=== PATIENT | female | born 1975 | race Caucasian/White ===

== ENCOUNTER 2019-06-12 21:00 | Emergency (ER) | payer OTHER ==
[2019-06-12 21:13] VITALS: RESP 18; TEMP 97.8
[2019-06-12] MEDS ORDERED: HYDROcodone/APAP 5-325MG 1 EACH TAB PO STA (21:21)
[2019-06-12] MEDS ORDERED: KETOROLAC 30 MG/ML 1 ML VIAL IM STA (21:21)
--- NOTE | 2019-06-12 21:57 | XR ---
EXAMINATION TYPE: XR shoulder complete 3 views RT, XR hand complete 3 views RT, XR elbow complete 3 v iews RT DATE OF EXAM: 06/12/2019 COMPARISON: NONE HISTORY: 43-year-old female with pain after fall FINDINGS: Right shoulder: Mild joint space narrowing at the AC joint. Mild bony irregularity and sclerosis of the greater tuber osity. Subacromial space is preserved. No acute fracture, subluxation, or dislocation. Right elbow: No elbow joint effusion. No acute fracture, subluxation, dislocation. Right hand: Mild degenerative spurring at the first CMC joint. No acute fracture, subluxation, or dislocation. IMPRESSION: 1. Right shoulder: Mild bony changes of the greater tuberosity suggests underlying chronic rotator cu ff tendinopathy. If concern for rotator cuff tear, MRI can be performed. 2. Right elbow and right hand: No acute osseous abnormality seen.
--- NOTE | 2019-06-12 22:28 | ED ---
Upper Extremity HPI - General Chief Complaint: Extremity Injury, Upper Stated Complaint: Fall Time Seen by Provider: 06/12/19 21:16 Source: patient Mode of arrival: ambulatory Limitations: no limitations - History of Present Illness Initial Comments: 43-year-old female patient presents to the emergency department today for evaluation of right arm pain after a trip and fall accident. Patient states she was walking backwards when she tripped over a box and fell landing on the right arm. Patient states she did hit her head but denies loss of consciousness. States she is having pain to the right shoulder, right elbow, and right hand. She denies any numbness or tingling to the arm. She denies any neck or back pain. Denies any other injuries. Patient denies any headache, chest pain, shortness of breath, dizziness, weakness, abdominal pain, nausea, vomiting, or difficulties with bowel movements or urination. - Related Data Previous Rx's Medication Instructions Recorded Hydrocodone/Acetaminophen 1 each PO Q4HR PRN #20 tablet 12/14/13 [Hydrocodone/Acetaminophen 5-325] Ibuprofen [Motrin] 600 mg PO Q8HR PRN #30 tab 06/12/19 Allergies Allergy/AdvReac Type Severity Reaction Status Date / Time No Known Allergies Allergy Verified 12/14/13 18:31 Review of Systems ROS Statement: Those systems with pertinent positive or pertinent negative responses have been documented in the HPI. ROS Other: All systems not noted in ROS Statement are negative. Past Medical History Past Medical History: No Reported History History of Any Multi-Drug Resistant Organisms: None Reported Past Surgical History: Section Additional Past Surgical History / Comment(s): d & c Past Psychological History: No Psychological Hx Reported Smoking Status: Never smoker Past Alcohol Use History: Rare Past Drug Use History: None Reported General Exam Limitations: no limitations General appearance: alert, in no apparent distress, other (This is a well- developed, well-nourished adult female patient in no acute distress. Vital signs upon presentation are temperature 97.8F, pulse 84, respirations 18, blood pressure 127/83, pulse ox 93% on room air.) Eye exam: Present: normal appearance, PERRL, EOMI. Absent: scleral icterus, conjunctival injection, periorbital swelling ENT exam: Present: normal exam, normal oropharynx, mucous membranes moist Respiratory exam: Present: normal lung sounds bilaterally. Absent: respiratory distress, wheezes, rales, rhonchi, stridor Cardiovascular Exam: Present: regular rate, normal rhythm, normal heart sounds. Absent: systolic murmur, diastolic murmur, rubs, gallop, clicks GI/Abdominal exam: Present: soft, normal bowel sounds. Absent: distended, tenderness, guarding, rebound, rigid Extremities exam: Present: normal inspection, full ROM, tenderness (Tenderness over the Right shoulder, right elbow, right hand.), normal capillary refill, other (Skin to the right arm is pink, warm, dry. Cap refills less than 3 seconds. Radial pulses 2+ and equal bilaterally.). Absent: pedal edema, joint swelling, calf tenderness Neurological exam: Present: alert, oriented X3, CN II-XII intact Psychiatric exam: Present: normal affect, normal mood Skin exam: Present: warm, dry, intact, normal color. Absent: rash Course Vital Signs 06/12/19 06/12/19 21:09 22:54 Temperature 97.8 F Pulse Rate 84 73 Respiratory 18 18 Rate Blood Pressure 127/83 132/83 O2 Sat by Pulse 93 L 97 Oximetry Medical Decision Making - Medical Decision Making 43-year-old female patient percents into the emergency department today for evaluation of right arm pain after trip and fall accident. Physical examination did reveal tenderness over the right shoulder, right elbow, and right hand. Neurovascular status is intact. X-rays of the right shoulder, elbow, hand were obtained and showed no acute abnormalities. Given patient's symptoms and physical exam findings are is concern for rotator cuff injury. She is placed in a sling. She is educated regarding range of motion exercises throughout the day. She is instructed to follow-up with the content management specialist for further evaluation. She is instructed to follow-up with her primary care physician for recheck in 1-2 days. Return parameters discussed in detail. She verbalizes understanding and agrees with this plan. - Radiology Data Radiology results: report reviewed, image reviewed X-rays of the right shoulder, right hand, and right elbow are obtained. Report was reviewed in its entirety. Impression by Dr. Magaña shows right shoulder mild bony changes of the greater tuberosity suggesting underlying chronic rotator cuff tendinopathy. Of concern for rotator cuff tear, MRI can be performed. Right elbow and right hand showed no acute osseous abnormality. Disposition Clinical Impression: Right shoulder injury Disposition: HOME SELF-CARE Condition: Good Instructions (If sedation given, give patient instructions): Rotator Cuff Injury (ED) Additional Instructions: Take arm out of the sling and perform gentle range of motion exercises 4 times daily. Take medications as directed for pain control. Apply ice to the arm 20 minutes at a time at least 4 times daily. Follow-up with the content management specialist for further evaluation as soon as possible. Follow up with her primary care physician for recheck in 1-2 days. Return to the emergency department immediately for any new, worsening, or concerning symptoms. Prescriptions: Ibuprofen [Motrin] 600 mg PO Q8HR PRN #30 tab PRN Reason: Pain Is patient prescribed a controlled substance at d/c from ED?: No Referrals: Brandy Washington MD [Primary Care Provider] - 1-2 days Richard Rodriguez MD [STAFF PHYSICIAN] - 1-2 days Time of Disposition: 22:28
[2019-06-12 22:56] VITALS: BP 132/83; PULSE 73
== END 2019-06-12 22:54 | disposition home or self-care (01) ==
LOC: EC 21:00
DX: S49.91XA Unspecified injury of right shoulder and upper arm, initial encounter (principal); W01.0XXA Fall on same level from slipping, tripping and stumbling without subsequent striking against object, initial encounter; Y93.01 Activity, walking, marching and hiking; Y92.009 Unspecified place in unspecified non-institutional (private) residence as the place of occurrence of the external cause
CPT/HCPCS: 73030; 73080; 73130; 96372; 99283; J1885

== ENCOUNTER 2021-07-09 13:07 | Emergency (ER) | payer OTHER ==
--- NOTE | 2021-07-09 15:31 | ED ---
General Adult HPI - General Chief complaint: Recheck/Abnormal Lab/Rx Stated complaint: Covid+/BAM Time Seen by Provider: 07/09/21 15:30 Source: patient, RN notes reviewed, old records reviewed Mode of arrival: ambulatory Limitations: no limitations - History of Present Illness Initial comments: Well-appearing 45-year-old female presents to the emergency room with complaints of body aches, fevers, cough and nausea with loss of appetite since July 03. She tested positive for coronavirus and 06 of July. She states that her entire family is positive. She states that she is dehydrated and cannot tolerate body aches anymore. She needs something to help with the nausea. She denies any other medical history no medicines on a daily basis. She has not been vaccinated -: days(s) (6) Location: head, chest Quality: aching Associated Symptoms: cough, loss of appetite, nausea/vomiting, shortness of breath - Related Data Previous Rx's Medication Instructions Recorded Hydrocodone/Acetaminophen 1 each PO Q4HR PRN #20 tablet 12/14/13 [Hydrocodone/Acetaminophen 5-325] Ibuprofen [Motrin] 600 mg PO Q8HR PRN #30 tab 06/12/19 Allergies Allergy/AdvReac Type Severity Reaction Status Date / Time No Known Allergies Allergy Verified 07/09/21 14:07 Review of Systems ROS Statement: Those systems with pertinent positive or pertinent negative responses have been documented in the HPI. ROS Other: All systems not noted in ROS Statement are negative. Past Medical History Past Medical History: No Reported History History of Any Multi-Drug Resistant Organisms: None Reported Past Surgical History: Section Additional Past Surgical History / Comment(s): d & c Past Psychological History: No Psychological Hx Reported Smoking Status: Never smoker Past Alcohol Use History: Rare Past Drug Use History: None Reported General Exam Limitations: no limitations General appearance: alert, in no apparent distress Head exam: Present: atraumatic, normocephalic, normal inspection Eye exam: Present: normal appearance, EOMI ENT exam: Present: normal exam, normal oropharynx, mucous membranes moist Neck exam: Present: normal inspection, full ROM. Absent: tenderness, meningismus, lymphadenopathy, thyromegaly Respiratory exam: Present: normal lung sounds bilaterally. Absent: respiratory distress, wheezes, rales, rhonchi, stridor, chest wall tenderness, accessory muscle use, decreased breath sounds Cardiovascular Exam: Present: regular rate, normal rhythm, normal heart sounds. Absent: systolic murmur, diastolic murmur, rubs, gallop, clicks GI/Abdominal exam: Present: soft, normal bowel sounds. Absent: distended, tenderness, guarding, rebound, rigid Neurological exam: Present: alert, oriented X3 Psychiatric exam: Present: normal affect, normal mood Skin exam: Present: warm, dry, intact, normal color. Absent: rash, cyanosis, diaphoretic Course Vital Signs 07/09/21 07/09/21 14:07 18:28 Temperature 97.9 F 98.2 F Pulse Rate 85 78 Respiratory 18 16 Rate Blood Pressure 117/76 141/79 O2 Sat by Pulse 100 97 Oximetry Medical Decision Making - Medical Decision Making Well-appearing 45-year-old female presents to the emergency room with complaints of body aches, fevers, cough and nausea with loss of appetite since July 03. She tested positive for coronavirus and 06 of July. She has not been vaccinated. She was given monoclonal antibodies infusion and tolerated them well. She was given Zofran and IV fluids in the emergency room. Oxygen saturation is 97-100% on room air. She has been afebrile in the emergency room. She was instructed to self quarantine for 10 days from symptom onset and 24 hours without a fever. Take vitamin C vitamin D and zinc for immune health. Return to the emergency room with any new or worsening symptoms. Case discussed with Dr. Kirkpatrick. - Lab Data Lab Results 07/09/21 Range/Units 16:12 Coronavirus (PCR) Detected A (Not Detectd) Disposition Clinical Impression: COVID-19 Disposition: HOME SELF-CARE Condition: Good Instructions (If sedation given, give patient instructions): Coronavirus Disease 2019 (COVID-19) Additional Instructions: Increase your fluid intake, self quarantine for 10 days from symptom onset and 24 hours without fever. Return to the emergency room with any new or worsening symptoms. Is patient prescribed a controlled substance at d/c from ED?: No Referrals: None,Stated [Primary Care Provider] - 1-2 days Time of Disposition: 17:19
[2021-07-09] MEDS ORDERED: SODIUM CHLORIDE 0.9% 1,000 ML IV ONE (15:38)
[2021-07-09] MEDS ORDERED: ONDANSETRON 4 MG/2 ML VIAL IVP STA ×2 (15:38→17:23)
[2021-07-09] MEDS ORDERED: SODIUM CHLORIDE 0.9% 50 ML IVPB ONE (16:45)
[2021-07-09] MEDS ORDERED: BAMLANIVIMAB (EUA) 700 MG, ETESEVIMAB (EUA) 1,400 MG in SODIUM CHLORIDE 0.9% 50 ML IVPB ONE (16:45)
[2021-07-09] MEDS ORDERED: ONDANSETRON 4 MG ODT STARTER PACK 2 TAB BTL PO STA (17:20)
[2021-07-09] MEDS ORDERED: IBUPROFEN 600 MG TAB PO STA (17:23)
[2021-07-09 18:29] VITALS: BP 141/79; PULSE 78; RESP 16; TEMP 98.2
== END 2021-07-09 18:28 | disposition home or self-care (01) ==
LOC: EC 13:07
DX: U07.1 COVID-19 (principal)
CPT/HCPCS: 96361; 96374; 96376; 99284; M0245; 87635

== ENCOUNTER 2023-03-06 20:01 | Observation (INO) | payer OTHER ==
--- NOTE | 2023-03-06 22:00 | ED ---
Dizziness HPI - General Chief Complaint: Dizziness Stated Complaint: migraines, blacking out, neurological Source: patient Mode of arrival: wheelchair Limitations: no limitations - History of Present Illness Initial Comments: 47 year old female Presenting to the ED with a chief complaint of altered mental status. Per patient and has had ongoing headache for the past few weeks. Patient states that her current headache has been somewhat consistent with history of headaches however notes that the headache she is experiencing now has been more persistent than usual. Over the past 2 or 3 days patient notes problems with memory, "trouble stringing sentences together', and confusion. He since notes 2 days ago, patient had an episode where she drove [address] and let herself into her nephew's house. Patient states that she does not recall this event. States that the next thing she remembered was the person answering the door asking if it was her that was not knocking. Denies chest pain or shortness of breath. No other complaints. - Related Data Previous Rx's Medication Instructions Recorded Hydrocodone/Acetaminophen 1 each PO Q4HR PRN #20 tablet 12/14/13 [Hydrocodone/Acetaminophen 5-325] Ibuprofen [Motrin] 600 mg PO Q8HR PRN #30 tab 06/12/19 Allergies Allergy/AdvReac Type Severity Reaction Status Date / Time No Known Allergies Allergy Verified 03/06/23 20:09 Review of Systems ROS Statement: Those systems with pertinent positive or pertinent negative responses have been documented in the HPI. ROS Other: All systems not noted in ROS Statement are negative. Past Medical History Past Medical History: No Reported History History of Any Multi-Drug Resistant Organisms: None Reported Past Surgical History: Section Additional Past Surgical History / Comment(s): d & c Past Psychological History: Depression Smoking Status: Never smoker Past Alcohol Use History: Rare Past Drug Use History: None Reported General Exam Limitations: no limitations General appearance: alert, in no apparent distress Eye exam: Present: normal appearance Respiratory exam: Present: normal lung sounds bilaterally Cardiovascular Exam: Present: regular rate, normal rhythm GI/Abdominal exam: Present: soft (No tenderness to palpation. No rebound guarding or rigidity.) Extremities exam: Present: normal inspection Back exam: Present: normal inspection Neurological exam: Present: alert (Oriented to person and place but not time.), CN II-XII intact Skin exam: Present: warm, dry Course Vital Signs 03/06/23 03/06/23 20:07 22:59 Temperature 98.5 F Pulse Rate 83 76 Respiratory 18 16 Rate Blood Pressure 137/88 118/72 O2 Sat by Pulse 100 99 Oximetry Medical Decision Making - Medical Decision Making Was pt. sent in by a medical professional or institution (, PA, PROFESSOR OF GEOLOGY, urgent care, hospital, or fdc...) When possible be specific @ -No Did you speak to anyone other than the patient for history (EMS, parent, family, police, friend...)? What history was obtained from this source @ -No Did you review nursing and triage notes (agree or disagree)? Why? @ -I reviewed and agree with nursing and triage notes Were old charts reviewed (outside hosp., previous admission, EMS record, old EKG, old radiological studies, urgent care reports/EKG's, fdc records)? Report findings @ -No old charts were reviewed Differential Diagnosis (chest pain, altered mental status, abdominal pain women, abdominal pain men, vaginal bleeding, weakness, fever, dyspnea, syncope, headache, dizziness, GI bleed, back pain, seizure, CVA, palpatations, mental health, musculoskeletal)? @ -Differential Altered Mental Status: Hypoglycemia, DKA, hypercapnia, ETOH, overdose, CO poisoning, trauma, myxedema coma, HTN encephalopathy, infection, encephalitis, psychosis, intercranial hemorrhage, hepatic encephalopathy, meningitis, CVA, this is not meant to be an all-inclusive list EKG interpreted by me (3pts min.). @ -As above X-rays interpreted by me (1pt min.). @ -None done CT interpreted by me (1pt min.). @ -CT brain showed no acute process U/S interpreted by me (1pt. min.). @ -None done What testing was considered but not performed or refused? (CT, X-rays, U/S, labs)? Why? @ -None What meds were considered but not given or refused? Why? @ -None Did you discuss the management of the patient with other professionals (professionals i.e. , PA, PROFESSOR OF GEOLOGY, lab, RT, psych nurse, social problems specialist, director of teenage activities, teacher, chief lifestyle officer, geriatric case manager)? Give summary @ -No Was smoking cessation discussed for >3mins.? @ -No Was critical care preformed (if so, how long)? @ -No Were there social determinants of health that impacted care today? How? (Homelessness, low income, unemployed, alcoholism, drug addiction, transportation, low edu. Level, literacy, decrease access to med. care, halfway, rehab)? @ -No Was there de-escalation of care discussed even if they declined (Discuss DNR or withdrawal of care, Hospice)? DNR status @ -No What co-morbidities impacted this encounter? (DM, HTN, Smoking, COPD, CAD, Cancer, CVA, ARF, Chemo, Hep., AIDS, mental health diagnosis, sleep apnea, morbid obesity)? @ -None Was patient admitted / discharged? Hospital course, mention meds given and route, prescriptions, significant lab abnormalities, going to OR and other pertinent info. @ -Admission. Laboratory studies are largely unremarkable. Imaging of the brain shows no acute process. With symptoms, patient will be admitted to observation with consult to neurology. Discussed plan of care with patient and family who are in agreement. Undiagnosed new problem with uncertain prognosis? @ -No Drug Therapy requiring intensive monitoring for toxicity (Heparin, Nitro, Insul in, Cardizem)? @ -No Were any procedures done? @ -No Diagnosis/symptom? @ -Headache, AMS Acute, or Chronic, or Acute on Chronic? @ -Acute Uncomplicated (without systemic symptoms) or Complicated (systemic symptoms)? @ -Complicated Side effects of treatment? @ -No Exacerbation, Progression, or Severe Exacerbation? @ -No Poses a threat to life or bodily function? How? (Chest pain, [place], NH, pneumonia, PE, COPD, DKA, ARF, appy, cholecystitis, CVA, Diverticulitis, Homicidal, Suicidal, threat to staff... and all critical care pts) @ -No - Lab Data Result diagrams: 03/06/23 22:22 03/06/23 22:22 Lab Results 03/06/23 03/06/23 Range/Units 22:22 22:22 WBC 10.4 (3.8-10.6) k/uL RBC 4.88 (3.80-5.40) m/uL Hgb 15.4 (11.4-16.0) gm/dL Hct 45.1 (34.0-46.0) % MCV 92.6 (80.0-100.0) fL MCH 31.7 (25.0-35.0) pg MCHC 34.2 (31.0-37.0) g/dL RDW 13.5 (11.5-15.5) % Plt Count 283 (150-450) k/uL MPV 8.7 Neutrophils % 53 % Lymphocytes % 33 % Monocytes % 8 % Eosinophils % 3 % Basophils % 0 % Neutrophils # 5.5 (1.3-7.7) k/uL Lymphocytes # 3.4 (1.0-4.8) k/uL Monocytes # 0.9 (0-1.0) k/uL Eosinophils # 0.3 (0-0.7) k/uL Basophils # 0.0 (0-0.2) k/uL Sodium 137 (137-145) mmol/L Potassium 4.2 (3.5-5.1) mmol/L Chloride 107 (98-107) mmol/L Carbon Dioxide 22 (22-30) mmol/L Anion Gap 8 mmol/L BUN 12 (7-17) mg/dL Creatinine 0.73 (0.52-1.04) mg/dL Est GFR (CKD-EPI)AfAm >90 (>60 ml/min/1.73 sqM) Est GFR (CKD-EPI)NonAf >90 (>60 ml/min/1.73 sqM) Glucose 88 (74-99) mg/dL Calcium 9.4 (8.4-10.2) mg/dL Total Bilirubin 0.5 (0.2-1.3) mg/dL AST 23 (14-36) U/L ALT 17 (4-34) U/L Alkaline Phosphatase 60 (38-126) U/L Total Protein 7.4 (6.3-8.2) g/dL Albumin 4.1 (3.5-5.0) g/dL - EKG Data EKG Comments: EKG shows a sinus rhythm at [address] or T-wave changes. ID [id number], QRS 97, QT/QTc 367/401. Disposition Clinical Impression: Headache, Altered mental state Disposition: ADMITTED IP TO THIS HOSP Condition: Good Referrals: Bryan Heart MD [Primary Care Provider] - 1-2 days Time of Disposition: 23:53
[2023-03-06 22:29] LABS: Basophils % (A) 0 %; Eosinophils # (A) 0.3 k/uL (0-0.7); Eosinophils % (A) 3 %; HCT 45.1 % (34.0-46.0); HGB 15.4 gm/dL (11.4-16.0); Lymphocytes # (A) 3.4 k/uL (1.0-4.8); Lymphocytes % (A) 33 %; MCH 31.7 pg (25.0-35.0); MCHC 34.2 g/dL (31.0-37.0); MCV 92.6 fL (80.0-100.0); Mean Platelet Volume 8.7; Monocytes # (A) 0.9 k/uL (0-1.0); Monocytes % (A) 8 %; Neutrophils # (A) 5.5 k/uL (1.3-7.7); Neutrophils % (A) 53 %; Platelet Count 283 k/uL (150-450); RBC 4.88 m/uL (3.80-5.40); RDW 13.5 % (11.5-15.5); WBC 10.4 k/uL (3.8-10.6)
[2023-03-06 22:57] LABS: ALT 17 U/L (4-34); African American GFR (CKD) >90 (>60 ml/min/1.73 sqM); Albumin 4.1 g/dL (3.5-5.0); Anion Gap 8 mmol/L; Blood Urea Nitrogen 12 mg/dL (7-17); Calcium 9.4 mg/dL (8.4-10.2); Carbon Dioxide 22 mmol/L (22-30); Chloride 107 mmol/L (98-107); Glucose 88 mg/dL (74-99); Non-African American GFR(CKD) >90 (>60 ml/min/1.73 sqM); Sodium 137 mmol/L (137-145); Total Bilirubin 0.5 mg/dL (0.2-1.3); Total Protein 7.4 g/dL (6.3-8.2)
[2023-03-06 23:02] LABS: AST 23 U/L (14-36); Alkaline Phosphatase 60 U/L (38-126); Potassium 4.2 mmol/L (3.5-5.1)
[2023-03-06] MEDS ORDERED: MORPHINE SULFATE 4 MG/ML SYRINGE IVP STA (23:05)
[2023-03-06] MEDS ORDERED: ONDANSETRON 4 MG/2 ML VIAL IVP STA (23:15)
--- NOTE | 2023-03-06 23:30 | CT ---
EXAM: CT Head Without Intravenous Contrast CLINICAL HISTORY: ITS.REASON CT Reason: AMS TECHNIQUE: Axial computed tomography images of the head/brain without intravenous contrast. CTDI is 49.1 mGy and DLP is 1096 mGy-cm. This CT exam was performed using one or more of the following dose reduction techniques: automated exposure control, adjustment of the mA and/or kV according to patient size, and/or use of iterative reconstruction technique. COMPARISON: No relevant prior studies available. FINDINGS: No acute intracranial hemorrhage. No midline shift or mass effect. The territorial beckman-white matter differentiation is maintained throughout. The ventricles and sulci are commensurate with age. The visualized orbits appear grossly unremarkable. The calvarium is intact. The visualized paranasal sinuses and mastoid air cells are grossly clear. IMPRESSION: No acute intracranial hemorrhage, midline shift, or mass effect.
[2023-03-06] MEDS ORDERED: HYDROmorphone 0.5 MG/0.5 ML SYRINGE IVP PRN (23:53)
[2023-03-06] MEDS ORDERED: ACETAMINOPHEN TAB 325 MG TAB PO PRN (23:53)
[2023-03-06] MEDS ORDERED: HYDROmorphone 1 MG/ML 1 ML SYRINGE IVP PRN (23:53)
[2023-03-06] MEDS ORDERED: NALOXONE 0.4 MG/ML 1 ML VIAL IV PRN (23:53)
[2023-03-07] MEDS: SODIUM CHLORIDE 0.9% 1,000 ML IV SCH ×2 (00:13→18:04)
[2023-03-07] MEDS: ONDANSETRON 4 MG/2 ML VIAL IVP PRN ×2 (02:19→19:45)
[2023-03-07] MEDS ORDERED: oxyCODONE-APAP 5-325MG 1 EACH TAB PO PRN (09:59)
[2023-03-07 11:57] LABS: Alcohol <10 mg/dL; C Reactive Protein <0.5 mg/dL (<1.0)
[2023-03-07] MEDS ORDERED: hydrOXYzine HCL 25 MG TAB PO PRN (12:45)
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
[2023-03-07] MEDS: SERTRALINE 50 MG TAB PO SCH (13:57)
[2023-03-07] MEDS: busPIRone HCl 10 MG TAB PO SCH ×2 (13:57→20:20)
--- NOTE | 2023-03-07 17:32 | EEG ---
ELECTROENCEPHALOGRAM REPORT CLINICAL HISTORY: This is a 47-year-old woman with confusion, headache, and staring off episodes. The video EEG is obtained to evaluate for seizure and epileptiform activity. RELEVANT MEDICATIONS: The patient is not on any antiepileptic drugs. EEG TYPE: A routine 21-channel EEG with video using the 10/20 electrode placement system. DESCRIPTION: Wakefulness is only obtained. The posterior-dominant rhythm consists of low-to- moderate voltage of 9 to 10 Hz activity. There is no physiological stage II sleep architecture. There is no focal slowing. INTERICTAL AND ICTAL: None. ACTIVATION PROCEDURE: Photic stimulation did not evoke a posterior driving response. There is no abnormality during the photic stimulation. Hyperventilation is not performed. CLINICAL INTERPRETATION: This is a normal routine EEG. There is no focal slowing, epileptiform discharge, or seizure on the EEG. If there still continues to be a concern for seizure, recommend a prolonged EEG for further evaluation. Clinical correlation is recommended. MMQINGL / IJN: [id number] /
--- NOTE | 2023-03-07 18:08 | P.HPIM ---
History of Present Illness H&P Date: 03/07/23 Chief Complaint: Dizziness/blackouts 47 year old female Presenting to the ED with a chief complaint of altered mental status. Per patient and has had ongoing headache for the past few weeks. Patient states that her current headache has been somewhat consistent with history of headaches however notes that the headache she is experiencing now has been more persistent than usual. Over the past 2 or 3 days patient notes problems with memory, "trouble stringing sentences together', and confusion. He since notes 2 days ago, patient had an episode where she drove [address] and let herself into her nephew's house. Patient states that she does not recall this event. States that the next thing she remembered was the person answering the door asking if it was her that was not knocking. Denies chest pain or shortness of breath. No other complaints. CBC with differential is unremarkable Chemistry panel is unremarkable Ammonia is less than 9, CRP is less than 0.5. TSH is 1.710. Serum alcohol was less than 10. CT of the head is reported as no acute intracranial hemorrhage, midline shift or mass effect. Review of Systems REVIEW OF SYSTEMS: CONSTITUTIONAL: No fever, no malaise, no fatigue. HEENT: No recent visual problems or hearing problems. Denied any sore throat. CARDIOVASCULAR: No chest pain, orthopnea, PND, no palpitations, no syncope. PULMONARY: No shortness of breath, no cough, no hemoptysis. GASTROINTESTINAL: No diarrhea, no nausea, no vomiting, no abdominal pain. NEUROLOGICAL: No headaches, no weakness, no numbness. HEMATOLOGICAL: Denies any bleeding or petechiae. GENITOURINARY: Denies any burning micturition, frequency, or urgency. MUSCULOSKELETAL/RHEUMATOLOGICAL: Denies any joint pain, swelling, or any muscle pain. ENDOCRINE: Denies any polyuria or polydipsia. The rest of the 14-point review of systems is negative. Past Medical History Past Medical History: No Reported History History of Any Multi-Drug Resistant Organisms: None Reported Past Surgical History: Section Additional Past Surgical History / Comment(s): d & c Past Psychological History: Anxiety, Depression Smoking Status: Never smoker Past Alcohol Use History: Rare Past Drug Use History: None Reported Medications and Allergies Home Medications Medication Instructions Recorded Confirmed Type Butalb/APAP/Caff 50-325-40Mg 1 tab PO DAILY PRN 03/07/23 03/07/23 History [Fioricet 50-325-40] Topiramate [Topamax] 50 mg PO BID 03/07/23 03/07/23 History hydrOXYzine HCL [Atarax] 25 mg PO TID PRN 03/07/23 03/07/23 History Allergies Allergy/AdvReac Type Severity Reaction Status Date / Time Corticosteroids AdvReac Affects Verified 03/07/23 07:16 (Glucocorticoids) mood & eyesight Physical Exam Vitals: Vital Signs Temp Pulse Pulse Resp BP BP Pulse Ox 03/07/23 08:09 98.7 F 80 16 142/85 98 03/06/23 22:59 76 16 118/72 99 03/06/23 20:07 98.5 F 83 18 137/88 100 Intake and Output 03/06/23 03/07/23 03/07/23 22:59 06:59 14:59 Other: Weight 79.379 kg 79.379 kg General appearance: alert, in no apparent distress Eye exam: Present: normal appearance Respiratory exam: Present: normal lung sounds bilaterally Cardiovascular Exam: Present: regular rate, normal rhythm GI/Abdominal exam: Present: soft (No tenderness to palpation. No rebound guarding or rigidity.) Extremities exam: Present: normal inspection Back exam: Present: normal inspection Neurological exam: Present: alert (Oriented to person and place but not time.), CN II-XII intact Skin exam: Present: warm, dry Results CBC & Chem 7: 03/06/23 22:22 03/06/23 22:22 Thrombosis Risk Factor Assmnt - Choose All That Apply Any of the Below Risk Factors Present?: Yes Each Factor Represents 1 point: Age 41-60 years Other Risk Factors: No Other congenital or acquired thrombophilia - If yes, enter type in comment: No Thrombosis Risk Factor Assessment Total Risk Factor Score: 1 Thrombosis Risk Factor Assessment Level: Low Risk Assessment and Plan Assessment: 1. Transient mental status change -- Episode of confusion with blank stares, grinding her teeth, headaches -- Patient has been evaluated by neurology - ordered MRI of the brain with and without stat to rule out any brain mass or sclerosis; ordered MRA of the head and neck -- ordered a routine EEG pending. I will hold off on any antiepileptic drug until there is evidence of seizures or increase risk for seizures. -- Ordered the urine drug screen, ESR, vitamin B12 and folate. So far her CRP, ammonia, TSH is within normal limits. She is also afebrile and no leukocytosis. Possible consider Lumbar Puncture down the line if work-up is negative. Psychiatry was consulted 2. Migraine headaches; patient reports that was diagnosed recently; patient takes Fioricet and Topamax 3. Anxiety/panic disorder; hydroxyzine 25 mg 3 times a day when necessary; psych consult in place
--- NOTE | 2023-03-07 18:33 | MR ---
EXAMINATION TYPE: MR angio head wo con DATE OF EXAM: 03/07/2023 6:00 PM CLINICAL INDICATION:Female, 47 years old with history of headache new onset. rule out any aneurysm o r dis; Confusion and severe migraines x3 weeks COMPARISON: MRI brain same day, CT 03/06/2013 Technical: 3-D [id number] Axial with MIP reconstruction created on a separate workstation.. IV Contrast: None Findings: Vertebral arteries: The vertebral arteries are patent. Vertebral arteries are: Codominant. Basilar artery: The basilar artery is intact. The basilar artery bifurcation is normal. Internal Carotid arteries: The cervical, petrous, cavernous and supraclinoid segments are normal. JULIO: Patent with no evidence of aneurysm. ACOM: Present without evidence of aneurysm. MCA: Patent with no evidence of aneurysm. WEB MARKETING SPECIALIST: Patent with no evidence of aneurysm. PCOM: Hypoplastic bilaterally. IMPRESSION: No evidence of aneurysm or significant stenosis.
--- NOTE | 2023-03-07 18:33 | MR ---
EXAMINATION TYPE: MR brain wo/w con DATE OF EXAM: 03/07/2023 5:58 PM CLINICAL INDICATION:Female, 47 years old with history of confusion; Confusion and severe migraines x3 weeks COMPARISON: 03/06/2023 TECHNIQUE: Multi planar, multi sequence imaging was performed through the brain including: T1, T2, In version recovery, susceptibility weighted imaging and gradient echo imaging and Diffusion weighted im aging. The patient was then given intravenous contrast and multi planar, T1 fat-saturation images wer e obtained. IV Contrast: 8ml cc Gadavist FINDINGS: The beckman-white junctions, ventricular system, basal cisterns appear unremarkable. Diffusion-weighted imaging shows no evidence of restricted diffusion to suggest acute/subacute infarct. Intracranial art erial flow voids are maintained. Midline structures show no abnormality. The susceptibility weighted images do not reveal any evidence for micro-hemorrhage. After administration of gadolinium, no abnorm al enhancement is seen. The bone marrow signal is within normal limits. Paranasal sinuses and mastoid air cells: High T2 signal within the right mastoid air cells. Visualized orbits: Orbital contents are intact. IMPRESSION: 1. No evidence of intracranial mass, acute/subacute infarct, or abnormal enhancement. 2. Trace right mastoid air cell effusion.
--- NOTE | 2023-03-07 18:33 | MR ---
EXAMINATION TYPE: MR angio neck wo/w con DATE OF EXAM: 03/07/2023 6:02 PM CLINICAL INDICATION:Female, 47 years old with history of headache. r/o dissection; Confusion and sev ere migraines x3 weeks COMPARISON: TECHNIQUE: Multiplanar, multi-sequence imaging as well as [id number] and phase contrast imaging w as performed extracranial vasculature of the neck. 2-D and 3-D [id number] imaging. 3-D reformatte d images and maximum intensity projection reformatted images were submitted for evaluation. IV Contrast: 8ml cc Gadavist FINDINGS: RIGHT CAROTID SYSTEM: The common carotid artery is patent. The carotid bifurcations that she no evide nce for hemodynamically significant stenosis. The internal carotid arteries patent. LEFT CAROTID SYSTEM: The common carotid artery is patent. The carotid bifurcations that she no evide nce for hemodynamically significant stenosis. The internal carotid arteries patent. The origins of the great vessels and vertebral arteries appear unremarkable. Codominant vertebral art eries. IMPRESSIONS: 1. No evidence of significant stenosis at the carotid bifurcations. The carotid and vertebral arterie s are patent. 2. No evidence aneurysm.
[2023-03-07] MEDS: oxyCODONE-APAP 5-325MG 1 EACH TAB PO PRN (19:42)
[2023-03-07] MEDS: TOPIRAMATE 25 MG TAB PO SCH (19:42)
[2023-03-07] MEDS: IBUPROFEN 400 MG TAB PO PRN (19:42)
[2023-03-07 22:37] LABS: Amphetamine Screen,Urine Not Detected (NotDetected); Barbiturate Screen,Urine Detected (NotDetected); Benzodiazepines Screen,Urine Not Detected (NotDetected); Cocaine Screen,Urine Not Detected (NotDetected); Methadone Screen, Urine Not Detected (NotDetected); Opiate Screen,Urine Detected (NotDetected); Oxycodone Screen, Urine Detected (NotDetected); Phencyclidine Screen,Urine Not Detected (NotDetected); Tricyclic Antidepressant,Urine Not Detected (NotDetected); Urn Cannabinoid Scrn Detected (NotDetected)
[2023-03-08] MEDS: SODIUM CHLORIDE 0.9% 1,000 ML IV SCH ×2 (04:33→18:55)
[2023-03-08] MEDS: IBUPROFEN 400 MG TAB PO PRN ×2 (04:34→20:16)
[2023-03-08] MEDS: busPIRone HCl 10 MG TAB PO SCH ×2 (08:52→20:16)
[2023-03-08] MEDS: oxyCODONE-APAP 5-325MG 1 EACH TAB PO PRN ×2 (08:53→18:02)
[2023-03-08] MEDS: SERTRALINE 50 MG TAB PO SCH (08:53)
[2023-03-08] MEDS: TOPIRAMATE 25 MG TAB PO SCH ×2 (08:53→20:16)
[2023-03-08 09:27] LABS: Basophils # (A) 0.04 X 10*3/uL (0.00-0.10); Basophils % (A) 0.6 %; Eosinophils % (A) 2.8 %; HGB 13.7 d/dL (12.0-15.0); Lymphocytes # (A) 2.87 X 10*3/uL (0.90-5.00); Lymphocytes % (A) 39.6 %; MCH 30.6 pg (27.0-32.0); MCHC 32.6 d/dL (32.0-37.0); MCV 93.8 FL (80.0-97.0); Mean Platelet Volume 11.3 FL (9.5-12.2); Monocytes # (A) 0.92 X 10*3/uL (0.20-1.00); Monocytes % (A) 12.7 %; NRBC Per 100 WBC 0 X 10*3/uL (0.00-0.01); Neutrophils # (A) 3.14 X 10*3/uL (1.80-7.70); Neutrophils % (A) 43.2 %; Platelet Count 283 X 10*3/uL (140-440); RBC 4.48 X 10*6/uL (4.10-5.20); RDW 13.9 % (11.5-14.5); WBC 7.25 X 10*3/uL (4.50-10.00)
[2023-03-08 10:27] LABS: BUN/Creat Ratio 17.14 Ratio (12.00-20.00); Calcium 8.6 mg/dL (8.7-10.3); Carbon Dioxide 19.8 mmol/L (21.6-31.8); Chloride 111 mmol/L (96-109); Glucose 86 mg/dL (70-110); Potassium 4.4 mmol/L (3.5-5.5); Sodium 140 mmol/L (135-145)
[2023-03-08] MEDS: ONDANSETRON 4 MG/2 ML VIAL IVP PRN (12:49)
--- NOTE | 2023-03-08 18:22 | P.PN ---
Subjective Progress Note Date: 03/08/23 47 year old female Presenting to the ED with a chief complaint of altered mental status. Per patient and has had ongoing headache for the past few weeks. Patient states that her current headache has been somewhat consistent with history of headaches however notes that the headache she is experiencing now has been more persistent than usual. Over the past 2 or 3 days patient notes problems with memory, "trouble stringing sentences together', and confusion. He since notes 2 days ago, patient had an episode where she drove [address] and let herself into her nephew's house. Patient states that she does not recall this event. States that the next thing she remembered was the person answering the door asking if it was her that was not knocking. Denies chest pain or shortness of breath. No other complaints. CBC with differential is unremarkable Chemistry panel is unremarkable Ammonia is less than 9, CRP is less than 0.5. TSH is 1.710. Serum alcohol was less than 10. CT of the head is reported as no acute intracranial hemorrhage, midline shift or mass effect. -- MRI/MRA of the of the brain is unremarkable; EEG is negative for any seizure activity; urine drug screen reveals opiates, barbiturates and marijuana Objective - Vital Signs Vital signs: Vital Signs Temp 98.3 F 03/08/23 07:49 Pulse 77 03/08/23 07:49 Resp 18 03/08/23 07:49 BP 121/70 03/08/23 07:49 Pulse Ox 97 03/08/23 07:49 FiO2 Intake & Output 03/07/23 03/08/23 03/08/23 18:59 06:59 18:59 Intake Total 1140 Output Total 200 Balance 940 Weight 79.379 kg Intake: Intake, IV Titration 900 Amount Sodium Chloride 0.9% 1, 900 000 ml @ 75 mls/hr IV . [id number] [facility] Rx#:[id number] Oral 240 Output: Urine 200 Other: # Voids 2 2 - Exam General appearance: alert, in no apparent distress Eye exam: Present: normal appearance Respiratory exam: Present: normal lung sounds bilaterally Cardiovascular Exam: Present: regular rate, normal rhythm GI/Abdominal exam: Present: soft (No tenderness to palpation. No rebound guarding or rigidity.) Extremities exam: Present: normal inspection Back exam: Present: normal inspection Neurological exam: Present: alert (Oriented to person and place but not time.), CN II-XII intact Skin exam: Present: warm, dry - Labs CBC & Chem 7: 03/08/23 06:20 03/08/23 06:20 Labs: Abnormal Lab Results - Last 24 Hours (Table) 03/07/23 03/08/23 Range/Units 21:47 06:20 Chloride 111 H (96-109) mmol/L Carbon Dioxide 19.8 L (21.6-31.8) mmol/L Calcium 8.6 L (8.7-10.3) mg/dL Urine Opiates Screen Detected H (NotDetected) Ur Oxycodone Screen Detected H (NotDetected) Ur Barbiturates Screen Detected H (NotDetected) U Marijuana (THC) Screen Detected H (NotDetected) Assessment and Plan Assessment: 1. Transient mental status change -- Episode of confusion with blank stares, grinding her teeth, headaches -- Patient has been evaluated by neurology - ordered MRI of the brain with and without stat to rule out any brain mass or sclerosis; ordered MRA of the head and neck -- ordered a routine EEG pending. I will hold off on any antiepileptic drug until there is evidence of seizures or increase risk for seizures. -- Ordered the urine drug screen, ESR, vitamin B12 and folate. So far her CRP, ammonia, TSH is within normal limits. She is also afebrile and no leukocytosis. Possible consider Lumbar Puncture down the line if work-up is negative. Psychiatry was consulted 2. Migraine headaches; patient reports that was diagnosed recently; patient takes Fioricet and Topamax 3. Anxiety/panic disorder; hydroxyzine 25 mg 3 times a day when necessary; psych consult in place
[2023-03-09] MEDS: ONDANSETRON 4 MG/2 ML VIAL IVP PRN ×2 (05:24→15:22)
[2023-03-09] MEDS: IBUPROFEN 400 MG TAB PO PRN (05:26)
[2023-03-09] MEDS: oxyCODONE-APAP 5-325MG 1 EACH TAB PO PRN (05:26)
[2023-03-09] MEDS: SERTRALINE 50 MG TAB PO SCH (08:31)
[2023-03-09] MEDS: SODIUM CHLORIDE 0.9% 1,000 ML IV SCH ×2 (08:32→20:27)
[2023-03-09] MEDS: TOPIRAMATE 25 MG TAB PO SCH ×2 (08:32→20:59)
[2023-03-09] MEDS: busPIRone HCl 10 MG TAB PO SCH ×2 (08:34→20:27)
[2023-03-09 11:53] LABS: African American GFR (CKD) >90 (>60 ml/min/1.73 sqM); Anion Gap 9 mmol/L; Blood Urea Nitrogen 10 mg/dL (7-17); Calcium 8.5 mg/dL (8.4-10.2); Carbon Dioxide 17 mmol/L (22-30); Chloride 114 mmol/L (98-107); Glucose 80 mg/dL (74-99); Non-African American GFR(CKD) >90 (>60 ml/min/1.73 sqM); Potassium 4.3 mmol/L (3.5-5.1); Sodium 140 mmol/L (137-145)
[2023-03-09] MEDS ORDERED: SUMAtriptan succinate 6 MG/0.5 ML VIAL SQ STA (13:50)
[2023-03-09] MEDS ORDERED: CYANOCOBALAMIN 1,000 MCG/ML 1 ML VIAL IM ONE (18:15)
--- NOTE | 2023-03-09 18:22 | P.PN ---
Subjective Progress Note Date: 03/09/23 Patient was initially seen by Dr. Vasiliy Avelar. Please refer to his note for details. Patient is a 47-year-old female with recent headaches, staring cough, grinding teeth, blank stares. Dr. Avelar was concerned about temporal lobe seizures, however her EEG was normal. MRI of the brain also appears normal. Patient tells me that she has history of migraines 22 years ago, but has not had any more, and she stopped having them. Lately patient is under a lot of stress from her mother diagnosed with a chronic illness as well as her . 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 She does not have good night's sleep, only has about 2 or 3 hours at a time. Patient also states that she was having episodes in which she was losing time. Sometimes she would forget [address] of [address] time. In the last 3 weeks he started having headaches almost daily. It involves back of the head that goes to the front of the head and in her eyes. Her headache was not as bad yesterday and was doing much better rating her headache 3/10, but today she had a headache 7/10. The headache got worse at 5 AM. She feels will throw up. Patient is very sensitive to the light, noise and smell. When she moves around, feels nauseous. She was started on Topamax 50 g twice a day about couple weeks ago. Objective - Vital Signs Vital signs: Vital Signs Temp 98.0 F 03/09/23 07:51 Pulse 59 L 03/09/23 07:51 Resp 16 03/09/23 07:51 BP 100/61 03/09/23 07:51 Pulse Ox 100 03/09/23 07:51 FiO2 Intake & Output 03/08/23 03/09/23 03/09/23 18:59 06:59 18:59 Intake Total 1380 Balance 1380 Intake: Intake, IV Titration 900 Amount Sodium Chloride 0.9% 1, 900 000 ml @ 75 mls/hr IV . [id number] [facility] Rx#:[id number] Oral 480 Other: # Voids 3 2 - Exam Patient's mental status, speech and language functions are normal. Cranial nerves are normal. Muscle strength is normal. No ataxia. Tone and bulk of muscles and gait normal. - Labs CBC & Chem 7: 03/08/23 06:20 03/09/23 10:24 Assessment and Plan Assessment: This is a 47-year-old woman who has been having new onset vascular headache for the last 3 weeks with and nausea vomiting, light and noise sensitivity. For over the last 1 week she is also noticing grinding her teeth, blank stares, having difficulty with the thoughts and putting things together according to he r, confusion. Denies any history of seizures. No shaking of any extremities or foaming around the mouth. It appears patient has developed migraine headaches. No vascular or structural abnormalities identified with the imaging. Pseudotumor cerebri or viral meningitis also in the differential. Episodes of confusion with blank stares, grinding her teeth, headaches: Unclear cause. EEG negative for any seizure activity, and therefore doubt seizures. Multiple stressors History of COVID-19 X3 (last on 06/2022) Plan: MRI of the brain with and without contrast was normal. No evidence of intracranial mass, acute/subacute infarct or abnormal enhancement. Trace right mastoid air cell effusion. I personally reviewed MRI, agree with the findings. MRA of the head revealed no aneurysm or significant stenosis. I personally reviewed MRA agree with the findings. MRA of the neck revealed no evidence of significant stenosis at the carotid bifurcation. The carotid and vertebral arteries are patent. No evidence of aneurysm. EEG was normal. There is no focal slowing, epileptiform discharges or seizure on the EEG. No indication for antiepileptic medication. Patient is already on Topamax 50 mg twice a day for migraine prophylaxis. Patient has developed new onset headaches. The headaches have some vascular features like migraines that she had in the past. She is under a lot of stress as well. Patient was given Imitrex 6 mg subcu 1 dose. The headache came down from 7-3. I discussed with patient about lumbar puncture to rule out pseudotumor cerebri versus viral meningitis. Patient says her headaches have improved, she wants to hold off on it. She wants to follow up with neurologist as an outpatient. If the headache persist, I would definitely consider lumbar puncture to check for opening pressure and also to rule out viral meningitis. At present there is no signs of infection, with normal WBC count, but no left shift, and the temper ature is normal. Patient does not look sick, and negative meningeal signs. Urine drug screen positive for opiate, oxycodone, barbiturate and marijuana. ESR 8, vitamin B12 325 and folate 9.6. Patient will be given vitamin B12 1000 g IM 1 dose and then continue 1000 g orally daily. Also start folic acid 0.5 mg daily. Psychiatry was consulted Neurologically, no other workup indicated besides as mentioned above.
[2023-03-09] MEDS: FOLIC ACID 1 MG TAB PO SCH (18:56)
--- NOTE | 2023-03-09 21:04 | P.PN ---
Subjective Progress Note Date: 03/09/23 47 year old female Presenting to the ED with a chief complaint of altered mental status. Per patient and has had ongoing headache for the past few weeks. Patient states that her current headache has been somewhat consistent with history of headaches however notes that the headache she is experiencing now has been more persistent than usual. Over the past 2 or 3 days patient notes problems with memory, "trouble stringing sentences together', and confusion. He since notes 2 days ago, patient had an episode where she drove [address] and let herself into her nephew's house. Patient states that she does not recall this event. States that the next thing she remembered was the person answering the door asking if it was her that was not knocking. Denies chest pain or shortness of breath. No other complaints. CBC with differential is unremarkable Chemistry panel is unremarkable Ammonia is less than 9, CRP is less than 0.5. TSH is 1.710. Serum alcohol was less than 10. CT of the head is reported as no acute intracranial hemorrhage, midline shift or mass effect. -- MRI/MRA of the of the brain is unremarkable; EEG is negative for any seizure activity; urine drug screen reveals opiates, barbiturates and marijuana -- Patient reports persistent migraine headache; workup discussed in detail; patient requesting re-evaluation and recommendations from Neurology regarding intractable headache Patient is otherwise stable for dc Objective - Vital Signs Vital signs: Vital Signs Temp 98.0 F 03/09/23 07:51 Pulse 59 L 03/09/23 07:51 Resp 16 03/09/23 07:51 BP 100/61 03/09/23 07:51 Pulse Ox 100 03/09/23 07:51 FiO2 Intake & Output 03/08/23 03/09/23 03/09/23 18:59 06:59 18:59 Intake Total 1380 Balance 1380 Intake: Intake, IV Titration 900 Amount Sodium Chloride 0.9% 1, 900 000 ml @ 75 mls/hr IV . [id number] [facility] Rx#:[id number] Oral 480 Other: # Voids 3 2 - Exam General appearance: alert, in no apparent distress Eye exam: Present: normal appearance Respiratory exam: Present: normal lung sounds bilaterally Cardiovascular Exam: Present: regular rate, normal rhythm GI/Abdominal exam: Present: soft (No tenderness to palpation. No rebound guarding or rigidity.) Extremities exam: Present: normal inspection Back exam: Present: normal inspection Neurological exam: Present: alert (Oriented to person and place but not time.), CN II-XII intact Skin exam: Present: warm, dry - Labs CBC & Chem 7: 03/08/23 06:20 03/09/23 10:24 Assessment and Plan Assessment: 1. Transient mental status change -- Episode of confusion with blank stares, grinding her teeth, headaches -- Patient has been evaluated by neurology - ordered MRI of the brain with and without stat to rule out any brain mass or sclerosis; ordered MRA of the head and neck -- ordered a routine EEG pending. I will hold off on any antiepileptic drug until there is evidence of seizures or increase risk for seizures. -- Ordered the urine drug screen, ESR, vitamin B12 and folate. So far her CRP, ammonia, TSH is within normal limits. She is also afebrile and no leukocytosis. Possible consider Lumbar Puncture down the line if work-up is negative. Psychiatry was consulted 2. Migraine headaches; patient reports that was diagnosed recently; patient takes Fioricet and Topamax 3. Anxiety/panic disorder; hydroxyzine 25 mg 3 times a day when necessary; psych consult in place
[2023-03-10] MEDS: SODIUM CHLORIDE 0.9% 1,000 ML IV SCH (06:19)
[2023-03-10 07:48] VITALS: RESP 18; TEMP 98.3
[2023-03-10] MEDS ORDERED: CYANOCOBALAMIN 500 MCG TAB PO SCH (09:00)
[2023-03-10] MEDS ORDERED: TOPIRAMATE 25 MG TAB PO SCH (09:00)
[2023-03-10] MEDS: busPIRone HCl 10 MG TAB PO SCH (09:10)
[2023-03-10] MEDS: SERTRALINE 50 MG TAB PO SCH (09:10)
[2023-03-10] MEDS: FOLIC ACID 1 MG TAB PO SCH (09:10)
--- NOTE | 2023-03-10 10:58 | P.DS ---
Providers Date of admission: 03/06/23 23:40 Expected date of discharge: 03/10/23 Attending physician: Lillie Magana Consults: 03/06/23 23:53 Consult Physician Urgent Consulting Provider: Vasiliy Avelar Consult Reason/Comments: AMS, GOINS Do you want consulting provider notified?: Yes Consult Physician Urgent Consulting Provider: Farhan Mascorro Consult Reason/Comments: Dissociattive fuge Do you want consulting provider notified?: Yes Primary care physician: Bryan Heart MD Hospital Course: 7 year old female Presenting to the ED with a chief complaint of altered mental status. Per patient and has had ongoing headache for the past few weeks. Patient states that her current headache has been somewhat consistent with history of headaches however notes that the headache she is experiencing now has been more persistent than usual. Over the past 2 or 3 days patient notes problems with memory, "trouble stringing sentences together', and confusion. He since notes 2 days ago, patient had an episode where she drove [address] and let herself into her nephew's house. Patient states that she does not recall this event. States that the next thing she remembered was the person answering the door asking if it was her that was not knocking. Denies chest pain or shortness of breath. No other complaints. CBC with differential is unremarkable Chemistry panel is unremarkable Ammonia is less than 9, CRP is less than 0.5. TSH is 1.710. Serum alcohol was less than 10. CT of the head is reported as no acute intracranial hemorrhage, midline shift or mass effect. -- MRI/MRA of the of the brain is unremarkable; EEG is negative for any seizure activity; urine drug screen reveals opiates, barbiturates and marijuana -- Patient reports persistent migraine headache; workup discussed in detail; patient requesting re-evaluation and recommendations from Neurology regarding intractable headache --Dose of Topamax adjusted, prescription provided for Zoloft and BuSpar cleared by neurology for discharge 1. Transient mental status change -- Episode of confusion with blank stares, grinding her teeth, headaches -- Patient has been evaluated by neurology - ordered MRI of the brain with and without stat to rule out any brain mass or sclerosis; ordered MRA of the head and neck -- Ordered the urine drug screen, ESR, vitamin B12 and folate. her CRP, ammonia, TSH is within normal limits. She is also afebrile and no leukocytosis. Psychiatry was consulted Cleared for discharge by neurology 2. Migraine headaches; patient reports that was diagnosed recently; patient takes Fioricet and Topamax 3. Anxiety/panic disorder; hydroxyzine 25 mg 3 times a day when necessary; psych consult in place Plan - Discharge Summary Discharge Rx Participant: No New Discharge Prescriptions: New busPIRone HCl [Buspar] 10 mg PO BID 30 Days #60 tab Folic Acid 1 mg PO DAILY 30 Days #30 tab Topiramate [Topamax] 25 mg PO BID 30 Days #60 tab Sertraline [Zoloft] 50 mg PO DAILY 30 Days #30 tab Continue Butalb/APAP/Caff 50-325-40Mg [Fioricet 50-325-40] 1 tab PO DAILY PRN PRN Reason: Headache hydrOXYzine HCL [Atarax] 25 mg PO TID PRN PRN Reason: Anxiety/Migraines Discontinued Topiramate [Topamax] 50 mg PO BID Discharge Medication List Butalb/APAP/Caff 50-325-40Mg [Fioricet 50-325-40] 1 tab PO DAILY PRN 03/07/23 [History] hydrOXYzine HCL [Atarax] 25 mg PO TID PRN 03/07/23 [History] Folic Acid 1 mg PO DAILY 30 Days #30 tab 03/10/23 [Rx] Sertraline [Zoloft] 50 mg PO DAILY 30 Days #30 tab 03/10/23 [Rx] Topiramate [Topamax] 25 mg PO BID 30 Days #60 tab 03/10/23 [Rx] busPIRone HCl [Buspar] 10 mg PO BID 30 Days #60 tab 03/10/23 [Rx] Follow up Appointment(s)/Referral(s): Bryan Heart MD [Primary Care Provider] - 1-2 days Discharge Disposition: HOME SELF-CARE
[2023-03-10 11:58] VITALS: BP 122/77; PULSE 85
== END 2023-03-10 14:24 | disposition home or self-care (01) ==
LOC: EC 20:01 → 5NMEDONC 23:40
PROVIDERS: ADMIT Hospitalist; ATTEND Hospitalist
DX: R41.82 Altered mental status, unspecified (principal); G43.909 Migraine, unspecified, not intractable, without status migrainosus; F41.0 Panic disorder [episodic paroxysmal anxiety]; F32.A Depression, unspecified; Z86.16 Personal history of COVID-19; Z79.899 Other long term (current) drug therapy
CPT/HCPCS: 36415; 70450; 70544; 70549; 70553; 80048; 80053; 80306; 80320; 82140; 82607; 82746; 84443; 85025; 85652; 86140; 93005; 95816; 96361; 96372; 96374; 96375; 96376; 99285

== ENCOUNTER 2023-05-15 21:36 | Emergency (ER) | payer OTHER ==
[2023-05-15] MEDS ORDERED: IBUPROFEN 800 MG TAB PO STA (22:50)
--- NOTE | 2023-05-15 22:55 | ED ---
General Adult HPI - General Chief complaint: Extremity Injury, Upper Stated complaint: Fall, wrist injury Time Seen by Provider: 05/15/23 22:08 Source: patient, RN notes reviewed Mode of arrival: ambulatory Limitations: no limitations - History of Present Illness Initial comments: 47 year-old female with no significant past medical history presents to the emergency department with a chief complaint of right hand pain. Patient reports that she was walking his dog in the dark when she tripped in a pothole falling forward. She denies hitting her head, loss of consciousness. She denies anticoagulant use. Denies any numbness, tingling, weakness in the extremity. She did not take Tylenol or Motrin prior to arrival. - Related Data Home Medications Medication Instructions Recorded Confirmed Butalb/APAP/Caff 50-325-40Mg 1 tab PO DAILY PRN 03/07/23 03/07/23 [Fioricet 50-325-40] hydrOXYzine HCL [Atarax] 25 mg PO TID PRN 03/07/23 03/07/23 Previous Rx's Medication Instructions Recorded Folic Acid 1 mg PO DAILY 30 Days #30 tab 03/10/23 SUMAtriptan succinate [Imitrex] 100 mg PO DIRECTED PRN 30 Days 03/10/23 #30 tablet Sertraline [Zoloft] 50 mg PO DAILY 30 Days #30 tab 03/10/23 Topiramate [Topamax] 25 mg PO BID 3 Days #6 cap 03/10/23 busPIRone HCl [Buspar] 10 mg PO BID 30 Days #60 tab 03/10/23 Ibuprofen [Motrin] 800 mg PO Q6HR #30 tab 05/15/23 Allergies Allergy/AdvReac Type Severity Reaction Status Date / Time Corticosteroids AdvReac Affects Verified 05/15/23 21:53 (Glucocorticoids) mood & eyesight Review of Systems ROS Statement: Those systems with pertinent positive or pertinent negative responses have been documented in the HPI. ROS Other: All systems not noted in ROS Statement are negative. Past Medical History Past Medical History: No Reported History History of Any Multi-Drug Resistant Organisms: None Reported Past Surgical History: Section Additional Past Surgical History / Comment(s): d & c Past Psychological History: Anxiety, Depression Smoking Status: Never smoker Past Alcohol Use History: Rare Past Drug Use History: None Reported General Exam - General Exam Comments Initial Comments: General: Alert, in no acute distress Head: atraumatic normocephalic. Eyes PERRL, EOMI intact, mucous membranes moist Respiratory: Lungs clear to auscultation bilaterally Cardiovascular: Regular rate and rhythm Abdominal: Soft without guarding or rebound Extremities: Normal inspection with full range of motion and normal capillary refill, 2+ radial pulses bilaterally. Positive snuffbox tenderness on right hand. No obvious deformity with mild swelling. Limited range of motion secondary to pain. No crepitus Neuroogic: alert and oriented 3, CN II-XII intact, able to ambulate with steady gait Skin: warm dry and intact with normal color Limitations: no limitations Course Vital Signs 05/15/23 05/16/23 21:53 00:14 Temperature 98.3 F 98.5 F Pulse Rate 87 78 Respiratory 16 18 Rate Blood Pressure 116/70 134/84 O2 Sat by Pulse 100 98 Oximetry Medical Decision Making - Medical Decision Making Was pt. sent in by a medical professional or institution (, PA, FLAME CUTTING SUPERVISOR, urgent care, hospital, or halfway...) When possible be specific @ -[No] Did you speak to anyone other than the patient for history (EMS, parent, family, police, friend...)? What history was obtained from this source @ -[No] Did you review nursing and triage notes (agree or disagree)? Why? @ -[I reviewed and agree with nursing and triage notes] Were old charts reviewed (outside hosp., previous admission, EMS record, old EKG, old radiological studies, urgent care reports/EKG's, halfway records)? Report findings @ -[No old charts were reviewed] Differential Diagnosis (chest pain, altered mental status, abdominal pain women, abdominal pain men, vaginal bleeding, weakness, fever, dyspnea, syncope, headache, dizziness, GI bleed, back pain, seizure, CVA, palpatations, mental health, musculoskeletal)? @ -[not applicable] EKG interpreted by me (3pts min.). @ -[As above] X-rays interpreted by me (1pt min.). @ -Hand x-ray and wrist x-ray negative for any evidence of fracture dislocation. CT interpreted by me (1pt min.). @ -[None done] U/S interpreted by me (1pt. min.). @ -[None done] What testing was considered but not performed or refused? (CT, X-rays, U/S, labs)? Why? @ -[None] What meds were considered but not given or refused? Why? @ -[None] Did you discuss the management of the patient with other professionals (delvin cavazos i.eMelvin Nicholson, PA, FLAME CUTTING SUPERVISOR, lab, RT, psych nurse, social science manager, manager of product, teacher, chief human resources officer, hospice case manager)? Give summary @ -[No] Was smoking cessation discussed for >3mins.? @ -[No] Was critical care preformed (if so, how long)? @ -[No] Were there social determinants of health that impacted care today? How? (Homelessness, low income, unemployed, alcoholism, drug addiction, transportation, low edu. Level, literacy, decrease access to med. care, retirement, rehab)? @ -[No] Was there de-escalation of care discussed even if they declined (Discuss DNR or withdrawal of care, Hospice)? DNR status @ -[No] What co-morbidities impacted this encounter? (DM, HTN, Smoking, COPD, CAD, Cancer, CVA, ARF, Chemo, Hep., AIDS, mental health diagnosis, sleep apnea, morbid obesity)? @ -[None] Was patient admitted / discharged? Hospital course, mention meds given and route, prescriptions, significant lab abnormalities, going to OR and other pertinent info. @ -Discharged. This is a 47-year-old female presents to the emergency department with all/right thumb pain. Patient had a history and physical exam. Patient has snuffbox tenderness to right hand. Patient will be placed in a thumb spica with recommended close follow-up with shwetha Carmen in 3-5 days. Patient given Motrin 800 for pain. Discharged in stable condition. Case discussed with [facility]. Burgos [facility] who agrees with plan of care Undiagnosed new problem with uncertain prognosis? @ -[No] Drug Therapy requiring intensive monitoring for toxicity (Heparin, Nitro, Insulin, Cardizem)? @ -[No] Were any procedures done? @ -[No] Diagnosis/symptom? @ -Right thumb pain Acute, or Chronic, or Acute on Chronic? @ -Acute Uncomplicated (without systemic symptoms) or Complicated (systemic symptoms)? @ -Uncompllicated Side effects of treatment? @ -[No] Exacerbation, Progression, or Severe Exacerbation? @ -[No] Poses a threat to life or bodily function? How? (Chest pain, USA, DC, pneumonia, PE, COPD, DKA, ARF, appy, cholecystitis, CVA, Diverticulitis, Homicidal, Suici bhavana, threat to staff... and all critical care pts) @ -Low likelihood Disposition Clinical Impression: Wrist pain Disposition: HOME SELF-CARE Condition: Stable Instructions (If sedation given, give patient instructions): Wrist Injury (ED), Scaphoid Fracture (ED) Additional Instructions: Please take Tylenol or Motrin when able Please apply ice for 15 minutes at a time Please return to the nearest emergency department if symptoms worsen or persist Prescriptions: Ibuprofen [Motrin] 800 mg PO Q6HR #30 tab Is patient prescribed a controlled substance at d/c from ED?: No Referrals: Vera Metcalf [Primary Care Provider] - 1-2 days Sushila Anders DO [Doctor of Osteopathic Medicine] - 1-2 days Time of Disposition: 23:48
--- NOTE | 2023-05-15 23:34 | XR ---
EXAM: XR Right Hand Complete, 3 or More Views CLINICAL HISTORY: ITS.REASON XR Reason: fall TECHNIQUE: Frontal, lateral and oblique views of the right hand. COMPARISON: No relevant prior studies available. FINDINGS: Bones/joints: Unremarkable. No acute fracture. No dislocation. Soft tissues: Unremarkable. No radiopaque foreign body. IMPRESSION: Normal right hand x-rays.
--- NOTE | 2023-05-15 23:34 | XR ---
EXAM: XR Right Wrist Complete, 3 or More Views CLINICAL HISTORY: ITS.REASON XR Reason: fall, pain TECHNIQUE: Frontal, lateral and oblique views of the right wrist. COMPARISON: No relevant prior studies available. FINDINGS: Bones/joints: Unremarkable. No acute fracture. No dislocation. Soft tissues: Unremarkable. No radiopaque foreign body. IMPRESSION: Normal right wrist x-rays.
[2023-05-16 00:32] VITALS: BP 134/84; PULSE 78; RESP 18; TEMP 98.5
== END 2023-05-16 00:16 | disposition home or self-care (01) ==
LOC: EC 21:36
DX: M79.641 Pain in right hand (principal); F41.9 Anxiety disorder, unspecified; Z79.899 Other long term (current) drug therapy; Z88.8 Allergy status to other drugs, medicaments and biological substances; W01.0XXA Fall on same level from slipping, tripping and stumbling without subsequent striking against object, initial encounter; Y93.K1 Activity, walking an animal
CPT/HCPCS: 99283

== ENCOUNTER 2023-11-22 20:18 | Emergency (ER) | payer OTHER ==
[2023-11-22 20:50] VITALS: TEMP 97.8
[2023-11-22] MEDS: SODIUM CHLORIDE 0.9% 1,000 ML IV STA (23:32)
[2023-11-22] MEDS: KETOROLAC 15 MG/ML 1 ML VIAL IVP STA (23:32)
[2023-11-22] MEDS: MAGNESIUM SULFATE-D5W PMX 1 GM in DEXTROSE/WATER 1 100ML.BAG IVPB ONE (23:33)
[2023-11-22] MEDS: ACETAMINOPHEN TAB 500 MG TAB PO STA (23:33)
[2023-11-22] MEDS: ONDANSETRON 4 MG/2 ML VIAL IVP STA (23:35)
[2023-11-22 23:48] LABS: Appearance,Urine Clear (Clear); Bilirubin,Urine Negative (Negative); Blood,Urine Small (Negative); Color,Urine Light Yellow; Glucose,Urine (UA) Negative (Negative); Ketones,Urine Negative (Negative); Leukocyte Esterase,Urine Negative (Negative); Mucus,Urine Occasional /hpf; Nitrite,Urine Negative (Negative); PH, Urine 6.5 (5.0-8.0); Protein,Urine Negative (Negative); RBC,Urine 9 /hpf (0-5); Specific Gravity,Urine 1.018 (1.001-1.035); Squamous Epithelial Cell,Urine 1 /hpf (0-4); Urobilinogen,Urine <2.0 mg/dL (<2.0); WBC,Urine 2 /hpf (0-5)
[2023-11-23 00:18] LABS: Basophils # (A) 0.1 k/uL (0-0.2); Basophils % (A) 1 %; Eosinophils # (A) 0.2 k/uL (0-0.7); Eosinophils % (A) 2 %; HCT 44.1 % (34.0-46.0); Lymphocytes # (A) 3.2 k/uL (1.0-4.8); Lymphocytes % (A) 35 %; MCH 29.5 pg (25.0-35.0); MCHC 31.8 g/dL (31.0-37.0); MCV 92.6 fL (80.0-100.0); Mean Platelet Volume 8.7; Monocytes # (A) 0.5 k/uL (0-1.0); Monocytes % (A) 5 %; Neutrophils % (A) 55 %; Platelet Count 312 k/uL (150-450); RBC 4.77 m/uL (3.80-5.40); RDW 13.9 % (11.5-15.5); WBC 9.1 k/uL (3.8-10.6)
[2023-11-23 00:46] LABS: ALT 13 U/L (4-34); African American GFR (CKD) >90 (>60 ml/min/1.73 sqM); Anion Gap 8 mmol/L; Blood Urea Nitrogen 12 mg/dL (7-17); Calcium 8.8 mg/dL (8.4-10.2); Carbon Dioxide 22 mmol/L (22-30); Chloride 109 mmol/L (98-107); Glucose 79 mg/dL (74-99); Non-African American GFR(CKD) >90 (>60 ml/min/1.73 sqM); Sodium 139 mmol/L (137-145)
[2023-11-23 00:51] LABS: AST 42 U/L (14-36); Albumin 4.1 g/dL (3.5-5.0); Alkaline Phosphatase 73 U/L (38-126); Potassium 4.6 mmol/L (3.5-5.1); Total Bilirubin 0.8 mg/dL (0.2-1.3); Total Protein 7.3 g/dL (6.3-8.2)
[2023-11-23 01:10] VITALS: BP 101/68; PULSE 55; RESP 15
--- NOTE | 2023-11-23 01:20 | ED ---
General Adult HPI - General Chief complaint: Headache Stated complaint: Migraine Time Seen by Provider: 11/22/23 22:19 Source: patient Mode of arrival: ambulatory Limitations: no limitations - History of Present Illness Initial comments: 48-year-old female with past medical history significant for migraines presenting to the ED with a chief complaint of headache. Patient states over the past few days has had a headache which is consistent with her history of migraines. Reports frontal headache with associated nausea, photophobia, phonophobia. No weakness. No chest pain or shortness of breath. No fever or chills. Patient states that although headache is severe, is consistent with her history of headaches and is not the worst headache that she has ever had in her life. No other complaints at this time. - Related Data Home Medications Medication Instructions Recorded Confirmed Butalb/APAP/Caff 50-325-40Mg 1 tab PO DAILY PRN 03/07/23 03/07/23 [Fioricet 50-325-40] hydrOXYzine HCL [Atarax] 25 mg PO TID PRN 03/07/23 03/07/23 Previous Rx's Medication Instructions Recorded Folic Acid 1 mg PO DAILY 30 Days #30 tab 03/10/23 SUMAtriptan succinate [Imitrex] 100 mg PO DIRECTED PRN 30 Days 03/10/23 #30 tablet Sertraline [Zoloft] 50 mg PO DAILY 30 Days #30 tab 03/10/23 Topiramate [Topamax] 25 mg PO BID 3 Days #6 cap 03/10/23 busPIRone HCl [Buspar] 10 mg PO BID 30 Days #60 tab 03/10/23 Ibuprofen [Motrin] 800 mg PO Q6HR #30 tab 05/15/23 Allergies Allergy/AdvReac Type Severity Reaction Status Date / Time Corticosteroids AdvReac Affects Verified 11/22/23 20:25 (Glucocorticoids) mood & eyesight Review of Systems ROS Statement: Those systems with pertinent positive or pertinent negative responses have been documented in the HPI. ROS Other: All systems not noted in ROS Statement are negative. Past Medical History Past Medical History: No Reported History History of Any Multi-Drug Resistant Organisms: None Reported Past Surgical History: Section Additional Past Surgical History / Comment(s): d & c Past Psychological History: Anxiety, Depression Smoking Status: Never smoker Past Alcohol Use History: Rare Past Drug Use History: None Reported General Exam Limitations: no limitations General appearance: alert, in no apparent distress Head exam: Present: atraumatic, normocephalic Eye exam: Present: normal appearance, PERRL, EOMI Neck exam: Present: normal inspection Respiratory exam: Present: normal lung sounds bilaterally Cardiovascular Exam: Present: regular rate GI/Abdominal exam: Present: soft Neurological exam: Present: alert, oriented X3, CN II-XII intact, normal gait Skin exam: Present: warm, dry Course Vital Signs 11/22/23 11/23/23 20:24 00:32 Temperature 97.8 F 97.8 F Pulse Rate 58 L 55 L Respiratory 18 15 Rate Blood Pressure 104/71 101/68 O2 Sat by Pulse 100 100 Oximetry Medical Decision Making - Medical Decision Making Was pt. sent in by a medical professional or institution (, PA, HYPERION ANALYST, urgent care, hospital, or alf...) When possible be specific @ -No Did you speak to anyone other than the patient for history (EMS, parent, family, police, friend...)? What history was obtained from this source @ -No Did you review nursing and triage notes (agree or disagree)? Why? @ -I reviewed and agree with nursing and triage notes Were old charts reviewed (outside hosp., previous admission, EMS record, old EKG, old radiological studies, urgent care reports/EKG's, alf records)? Report findings @ -No old charts were reviewed Differential Diagnosis (chest pain, altered mental status, abdominal pain women, abdominal pain men, vaginal bleeding, weakness, fever, dyspnea, syncope, headache, dizziness, GI bleed, back pain, seizure, CVA, palpatations, mental health, musculoskeletal)? @ -Differential Headache: Migraine, tension, cluster, carbon monoxide, central venous thrombosis, pension karma temporal arteritis, acute closure glaucoma, intercranial hemorrhage, mastoiditis, sinusitis, head injury, this is not meant to be an all-inclusive list. EKG interpreted by me (3pts min.). @ -None X-rays interpreted by me (1pt min.). @ -None done CT interpreted by me (1pt min.). @ -None done U/S interpreted by me (1pt. min.). @ -None done What testing was considered but not performed or refused? (CT, X-rays, U/S, labs)? Why? @ -CT was considered secondary to intractable headache however at this time patient reports that she would like to go home. What meds were considered but not given or refused? Why? @ -None Did you discuss the management of the patient with other professionals (professionals i.e. , PA, HYPERION ANALYST, lab, RT, psych nurse, psychiatric social worker, director pharmacovigilance, teacher, animal control officer, human services case manager)? Give summary @ -No Was smoking cessation discussed for >3mins.? @ -No Was critical care preformed (if so, how long)? @ -No Were there social determinants of health that impacted care today? How? (Homelessness, low income, unemployed, alcoholism, drug addiction, transportation, low edu. Level, literacy, decrease access to med. care, long term, rehab)? @ -No Was there de-escalation of care discussed even if they declined (Discuss DNR or withdrawal of care, Hospice)? DNR status @ -No What co-morbidities impacted this encounter? (DM, HTN, Smoking, COPD, CAD, Cancer, CVA, ARF, Chemo, Hep., AIDS, mental health diagnosis, sleep apnea, morbid obesity)? @ -None Was patient admitted / discharged? Hospital course, mention meds given and route, prescriptions, significant lab abnormalities, going to OR and other pe rtinent info. @ -Discharge 48-year-old female with past medical history significant for migraines presenting to the ED with complaints of headache. On exam neurologically intact. Vital signs stable afebrile. Patient provided analgesia here and reported improvement of headache from an 8 to a 6 in severity. At this time, patient would like to go home. She would not like to try any further medications to see how they affect her. Would not like to have further testing done. Patient discharged home in stable condition with instructions to closely follow-up with her PCP. Discussed return precautions with patient verbalized agreement. Undiagnosed new problem with uncertain prognosis? @ -No Drug Therapy requiring intensive monitoring for toxicity (Heparin, Nitro, Insulin, Cardizem)? @ -No Were any procedures done? @ -No Diagnosis/symptom? @ -Headache Acute, or Chronic, or Acute on Chronic? @ -Acute Uncomplicated (without systemic symptoms) or Complicated (systemic symptoms)? @ -Uncomplicated Side effects of treatment? @ -No Exacerbation, Progression, or Severe Exacerbation? @ -No Poses a threat to life or bodily function? How? (Chest pain, [place], [place], pneumonia, PE, COPD, DKA, ARF, appy, cholecystitis, CVA, Diverticulitis, Homicidal, Suicidal, threat to staff... and all critical care pts) @ -Unlikely - Lab Data Result diagrams: 11/22/23 23:25 11/22/23 23:35 Lab Results 11/22/23 11/22/23 11/22/23 Range/Units 23:20 23:20 23:25 WBC 9.1 (3.8-10.6) k/uL RBC 4.77 (3.80-5.40) m/uL Hgb 14.0 (11.4-16.0) gm/dL Hct 44.1 (34.0-46.0) % MCV 92.6 (80.0-100.0) fL MCH 29.5 (25.0-35.0) pg MCHC 31.8 (31.0-37.0) g/dL RDW 13.9 (11.5-15.5) % Plt Count 312 (150-450) k/uL MPV 8.7 Neutrophils % 55 % Lymphocytes % 35 % Monocytes % 5 % Eosinophils % 2 % Basophils % 1 % Neutrophils # 5.0 (1.3-7.7) k/uL Lymphocytes # 3.2 (1.0-4.8) k/uL Monocytes # 0.5 (0-1.0) k/uL Eosinophils # 0.2 (0-0.7) k/uL Basophils # 0.1 (0-0.2) k/uL Sodium (137-145) mmol/L Potassium (3.5-5.1) mmol/L Chloride (98-107) mmol/L Carbon Dioxide (22-30) mmol/L Anion Gap mmol/L BUN (7-17) mg/dL Creatinine (0.52-1.04) mg/dL Est GFR (CKD-EPI)AfAm (>60 ml/min/1.73 sqM) Est GFR (CKD-EPI)NonAf (>60 ml/min/1.73 sqM) Glucose (74-99) mg/dL Calcium (8.4-10.2) mg/dL Total Bilirubin (0.2-1.3) mg/dL AST (14-36) U/L ALT (4-34) U/L Alkaline Phosphatase (38-126) U/L Total Protein (6.3-8.2) g/dL Albumin (3.5-5.0) g/dL Urine Color Light Yellow Urine Appearance Clear (Clear) Urine pH 6.5 (5.0-8.0) Ur Specific [place] 1.018 (1.001-1.035) Urine Protein Negative (Negative) Urine Glucose (UA) Negative (Negative) Urine Ketones Negative (Negative) Urine Blood Small H (Negative) Urine Nitrite Negative (Negative) Urine Bilirubin Negative (Negative) Urine Urobilinogen <2.0 (<2.0) mg/dL Ur Leukocyte Esterase Negative (Negative) Urine RBC 9 H (0-5) /hpf Urine WBC 2 (0-5) /hpf Ur Squamous Epith Cells 1 (0-4) /hpf Urine Mucus Occasional H (None) /hpf Urine HCG, Qual Not Detected (Not Detectd) 11/22/23 Range/Units 23:35 WBC (3.8-10.6) k/uL RBC (3.80-5.40) m/uL Hgb (11.4-16.0) gm/dL Hct (34.0-46.0) % MCV (80.0-100.0) fL MCH (25.0-35.0) pg MCHC (31.0-37.0) g/dL RDW (11.5-15.5) % Plt Count (150-450) k/uL MPV Neutrophils % % Lymphocytes % % Monocytes % % Eosinophils % % Basophils % % Neutrophils # (1.3-7.7) k/uL Lymphocytes # (1.0-4.8) k/uL Monocytes # (0-1.0) k/uL Eosinophils # (0-0.7) k/uL Basophils # (0-0.2) k/uL Sodium 139 (137-145) mmol/L Potassium 4.6 (3.5-5.1) mmol/L Chloride 109 H (98-107) mmol/L Carbon Dioxide 22 (22-30) mmol/L Anion Gap 8 mmol/L BUN 12 (7-17) mg/dL Creatinine 0.61 (0.52-1.04) mg/dL Est GFR (CKD-EPI)AfAm >90 (>60 ml/min/1.73 sqM) Est GFR (CKD-EPI)NonAf >90 (>60 ml/min/1.73 sqM) Glucose 79 (74-99) mg/dL Calcium 8.8 (8.4-10.2) mg/dL Total Bilirubin 0.8 (0.2-1.3) mg/dL AST 42 H (14-36) U/L ALT 13 (4-34) U/L Alkaline Phosphatase 73 (38-126) U/L Total Protein 7.3 (6.3-8.2) g/dL Albumin 4.1 (3.5-5.0) g/dL Urine Color Urine Appearance (Clear) Urine pH (5.0-8.0) Ur Specific [place] (1.001-1.035) Urine Protein (Negative) Urine Glucose (UA) (Negative) Urine Ketones (Negative) Urine Blood (Negative) Urine Nitrite (Negative) Urine Bilirubin (Negative) Urine Urobilinogen (<2.0) mg/dL Ur Leukocyte Esterase (Negative) Urine RBC (0-5) /hpf Urine WBC (0-5) /hpf Ur Squamous Epith Cells (0-4) /hpf Urine Mucus (None) /hpf Urine HCG, Qual (Not Detectd) Disposition Clinical Impression: Headache Disposition: HOME SELF-CARE Condition: Good Instructions (If sedation given, give patient instructions): Acute Headache (ED) Additional Instructions: Please return to the Emergency Department if symptoms worsen or any other concerns. Please follow-up with your PCP. Is patient prescribed a controlled substance at d/c from ED?: No Referrals: Vera Metcalf [Primary Care Provider] - 1-2 days Time of Disposition: 01:22
[2023-11-23] MEDS: MORPHINE SULFATE 4 MG/ML SYRINGE IVP STA (01:51)
== END 2023-11-23 02:19 | disposition home or self-care (01) ==
LOC: EC 20:18
DX: R51.9 Headache, unspecified (principal); Z88.8 Allergy status to other drugs, medicaments and biological substances
CPT/HCPCS: 36415; 80053; 85025; 81001; 81025; 99284; 96365; 96366; 96375 ×3; J2270; J2405; J3475; J1885

== ENCOUNTER 2023-11-25 10:20 | Emergency (ER) | payer OTHER ==
[2023-11-25] MEDS: MAGNESIUM SULFATE-D5W PMX 1 GM in DEXTROSE/WATER 1 100ML.BAG IVPB ONE (11:45)
[2023-11-25] MEDS: SODIUM CHLORIDE 0.9% 1,000 ML IV STA (11:45)
[2023-11-25] MEDS: diphenhydrAMINE 50 MG/ML 1 ML VIAL IVP STA (11:46)
[2023-11-25] MEDS: METOCLOPRAMIDE 5 MG/ML 2 ML VIAL IVP STA (11:46)
[2023-11-25] MEDS: KETOROLAC 15 MG/ML 1 ML VIAL IVP STA (11:46)
--- NOTE | 2023-11-25 13:22 | ED ---
General Adult HPI - General Chief complaint: Headache Stated complaint: headache Time Seen by Provider: 11/25/23 11:20 Source: patient, RN notes reviewed, old records reviewed Mode of arrival: ambulatory Limitations: no limitations - History of Present Illness Initial comments: Patient is a 48-year-old female who presents emergency department complaining of migraine. Has a history of migraines. States this is typical migraine. Sensitivity to lights and sounds. Is out of her Imitrex. Presents for further evaluation at this time. Denies any significant nausea or vomiting. Denies chest pain or shortness of breath. No fevers or chills. No other acute complaints. Asking for a migraine cocktail. - Related Data Home Medications Medication Instructions Recorded Confirmed Butalb/APAP/Caff 50-325-40Mg 1 tab PO DAILY PRN 03/07/23 03/07/23 [Fioricet 50-325-40] hydrOXYzine HCL [Atarax] 25 mg PO TID PRN 03/07/23 03/07/23 Previous Rx's Medication Instructions Recorded Folic Acid 1 mg PO DAILY 30 Days #30 tab 03/10/23 SUMAtriptan succinate [Imitrex] 100 mg PO DIRECTED PRN 30 Days 03/10/23 #30 tablet Sertraline [Zoloft] 50 mg PO DAILY 30 Days #30 tab 03/10/23 Topiramate [Topamax] 25 mg PO BID 3 Days #6 cap 03/10/23 busPIRone HCl [Buspar] 10 mg PO BID 30 Days #60 tab 03/10/23 Ibuprofen [Motrin] 800 mg PO Q6HR #30 tab 05/15/23 Allergies Allergy/AdvReac Type Severity Reaction Status Date / Time Corticosteroids AdvReac Affects Verified 11/25/23 10:40 (Glucocorticoids) mood & eyesight Review of Systems ROS Statement: Those systems with pertinent positive or pertinent negative responses have been documented in the HPI. Review of Systems: CONST: Denies fever EYES: Denies blurry vision ENT: Denies nasal congestion C/V: Denies Chest pain RESP: Denies shortness of breath GI: Denies abdominal pain : Denies dysuria SKIN: Denies rash. MSK: Denies joint pain. NEURO: Endorses headache, ROS Other: All systems not noted in ROS Statement are negative. Past Medical History Past Medical History: No Reported History Additional Past Medical History / Comment(s): migraines History of Any Multi-Drug Resistant Organisms: None Reported Past Surgical History: Section Additional Past Surgical History / Comment(s): d & c Past Psychological History: Anxiety, Depression Smoking Status: Never smoker Past Alcohol Use History: Rare Past Drug Use History: None Reported General Exam - General Exam Comments Initial Comments: General: Appears in mild distress secondary to headache. HEAD: Normal with no signs of head trauma. EYES: PERRLA, EOMI, conjunctiva normal, no discharge. Pupils are 3 mm and equal bilaterally. ENT: Hearing grossly intact, normal oropharynx. RESPIRATORY: Clear breath sounds bilaterally. No wheezes, rales, or rhonchi. C/V: Regular rate and rhythm. S1 and S2 auscultated, no edema, peripheral pulses 2+ and intact throughout ABD: Abd is soft, nontender, nondistended EXT: Normal range of motion, no obvious deformity SKIN: No rashes or lesions observed on exposed skin. NEURO: Alert and oriented x 4. Cranial nerves II-XII intact. No focal sensory or strength deficits. GCS of 15. Limitations: no limitations Course Vital Signs 11/25/23 11/25/23 10:36 13:30 Temperature 98.1 F 97.8 F Pulse Rate 75 71 Respiratory 16 18 Rate Blood Pressure 90/67 108/68 O2 Sat by Pulse 100 100 Oximetry Medical Decision Making - Medical Decision Making Was pt. sent in by a medical professional or institution (LUIS Nicholson, ABLE BODIED WATCHMAN, urgent care, hospital, or assisted...) When possible be specific @ -No Did you speak to anyone other than the patient for history (EMS, parent, family, police, friend...)? What history was obtained from this source @ -No Did you review nursing and triage notes (agree or disagree)? Why? @ -I reviewed and agree with nursing and triage notes Were old charts reviewed (outside hosp., previous admission, EMS record, old EKG, old radiological studies, urgent care reports/EKG's, assisted records)? Report findings @ -Charts reviewed Differential Diagnosis (chest pain, altered mental status, abdominal pain women, abdominal pain men, vaginal bleeding, weakness, fever, dyspnea, syncope, headache, dizziness, GI bleed, back pain, seizure, CVA, palpatations, mental health, musculoskeletal)? @ -Migraine, headache. This list is not on physical. EKG interpreted by me (3pts min.). @ -None done X-rays interpreted by me (1pt min.). @ -None done CT interpreted by me (1pt min.). @ -None done U/S interpreted by me (1pt. min.). @ -None done What testing was considered but not performed or refused? (CT, X-rays, U/S, labs)? Why? @ -None What meds were considered but not given or refused? Why? @ -None Did you discuss the management of the patient with other professionals (professionals i.e. , PA, ABLE BODIED WATCHMAN, lab, RT, psych nurse, forensic social worker, superintendent refuse disposal, t eacher, horticultural technical officer, employment case manager)? Give summary @ -No Was smoking cessation discussed for >3mins.? @ -No Was critical care preformed (if so, how long)? @ -No Were there social determinants of health that impacted care today? How? (Homelessness, low income, unemployed, alcoholism, drug addiction, transportation, low edu. Level, literacy, decrease access to med. care, prison, rehab)? @ -No Was there de-escalation of care discussed even if they declined (Discuss DNR or withdrawal of care, Hospice)? DNR status @ -No What co-morbidities impacted this encounter? (DM, HTN, Smoking, COPD, CAD, Cancer, CVA, ARF, Chemo, Hep., AIDS, mental health diagnosis, sleep apnea, morbid obesity)? @ -Migraine headaches Was patient admitted / discharged? Hospital course, mention meds given and route, prescriptions, significant lab abnormalities, going to OR and other pertinent info. @ -Patient presents with her typical migraine headaches and is asking for a migraine cocktail. Vital signs within acceptable limits. Patient be symptomatically treated with IV fluids, Toradol, magnesium, Benadryl, Reglan. Patient was in agreement this plan. After migraine cocktail and observation, patient's migraine has resolved. Patient be discharged home at this time. She was in agreement this plan. I instructed the patient to follow up with their PCP in the next 1-3 days. I explained that the patient should return to the emergency department if they experience any worsening symptoms. Strict return precautions were discussed with the patient. The patient expressed understanding of these instructions. I answered all questions that the patient had. The patient was discharged home in good condition with their prescriptions and follow up information. Undiagnosed new problem with uncertain prognosis? @ -No Drug Therapy requiring intensive monitoring for toxicity (Heparin, Nitro, Insulin, Cardizem)? @ -No Were any procedures done? @ -No Diagnosis/symptom? @ -Migraine headache Acute, or Chronic, or Acute on Chronic? @ -Acute on chronic Uncomplicated (without systemic symptoms) or Complicated (systemic symptoms)? @ -Complicated Side effects of treatment? @ -No Exacerbation, Progression, or Severe Exacerbation? @ -No Poses a threat to life or bodily function? How? (Chest pain, [place], [place], pneumonia, PE, COPD, DKA, ARF, appy, cholecystitis, CVA, Diverticulitis, Homicidal, Suicidal, threat to staff... and all critical care pts) @ -Unlikely Disposition Clinical Impression: Migraine Disposition: HOME SELF-CARE Condition: Good Instructions (If sedation given, give patient instructions): Acute Headache (ED) Is patient prescribed a controlled substance at d/c from ED?: No Referrals: Vera Metcalf [Primary Care Provider] - 1-2 days Time of Disposition: 13:15
[2023-11-25 13:42] VITALS: BP 108/68; PULSE 71; RESP 18; TEMP 97.8
== END 2023-11-25 13:32 | disposition home or self-care (01) ==
LOC: EC 10:20
DX: G43.909 Migraine, unspecified, not intractable, without status migrainosus (principal); Z88.8 Allergy status to other drugs, medicaments and biological substances
CPT/HCPCS: 99283; 96365; 96375 ×3; J1200; J2765; J3475; J1885

== ENCOUNTER 2023-11-27 14:41 | Emergency (ER) | payer OTHER ==
--- NOTE | 2023-11-27 15:06 | ED ---
General Adult HPI - General Source: patient, RN notes reviewed, old records reviewed Mode of arrival: ambulatory Limitations: no limitations <Gamaliel Abreu - Last Filed: 11/27/23 15:05> - General Source: patient, RN notes reviewed, old records reviewed <Dannie Roberto - Last Filed: 11/27/23 22:29> - General Stated complaint: headache Time Seen by Provider: 11/27/23 15:01 - History of Present Illness Initial comments: Quick [id number] female presents emergency department chief complaint of ongoing migraine headache. She states has been seen here twice that she had no prior imaging for this current headache. Patient states that she was admitted in the past for headache she does follow-up with neurology she tried all of her medications with no relief of symptoms. She states she is nauseated photophobia, feels sick in general. (Gamaliel Abreu) Originally evaluated as a quick note. Presents with ongoing migraine headache. Has a history of migraines. Was originally seen as a quick note and CT imaging was obtained. This is a typical migraine headache for the patient. Does see a neurologist on Friday. Presents for further evaluation. Endorses photophobia and phonophobia. No weakness. No fevers. No chills. No blurry vision. No chest pain or shortness of breath. I evaluated patient when she was placed in a room. (Dannie Roberto) - Related Data Home Medications Medication Instructions Recorded Confirmed Butalb/APAP/Caff 50-325-40Mg 1 tab PO DAILY PRN 03/07/23 03/07/23 [Fioricet 50-325-40] hydrOXYzine HCL [Atarax] 25 mg PO TID PRN 03/07/23 03/07/23 Previous Rx's Medication Instructions Recorded Folic Acid 1 mg PO DAILY 30 Days #30 tab 03/10/23 SUMAtriptan succinate [Imitrex] 100 mg PO DIRECTED PRN 30 Days 03/10/23 #30 tablet Sertraline [Zoloft] 50 mg PO DAILY 30 Days #30 tab 03/10/23 Topiramate [Topamax] 25 mg PO BID 3 Days #6 cap 03/10/23 busPIRone HCl [Buspar] 10 mg PO BID 30 Days #60 tab 03/10/23 Ibuprofen [Motrin] 800 mg PO Q6HR #30 tab 10/26/23 Allergies Allergy/AdvReac Type Severity Reaction Status Date / Time Corticosteroids AdvReac Affects Verified 11/27/23 15:20 (Glucocorticoids) mood & eyesight Review of Systems ROS Other: All systems not noted in ROS Statement are negative. <Gamaliel Abreu - Last Filed: 11/27/23 15:05> ROS Other: All systems not noted in ROS Statement are negative. <Dannie Roberto - Last Filed: 11/27/23 22:29> ROS Statement: Those systems with pertinent positive or pertinent negative responses have been documented in the HPI. Review of Systems: CONST: Denies fever EYES: Denies blurry vision ENT: Denies nasal congestion C/V: Denies Chest pain RESP: Denies shortness of breath GI: Denies abdominal pain : Denies dysuria SKIN: Denies rash. MSK: Denies joint pain. NEURO: Endorses headache (Dannie Roberto) Past Medical History Past Medical History: No Reported History Additional Past Medical History / Comment(s): migraines History of Any Multi-Drug Resistant Organisms: None Reported Past Surgical History: Section Additional Past Surgical History / Comment(s): d & c Past Psychological History: Anxiety, Depression Smoking Status: Never smoker Past Alcohol Use History: Rare Past Drug Use History: None Reported <Gamaliel Abreu - Last Filed: 11/27/23 15:05> General Exam General appearance: alert, in no apparent distress Head exam: Present: atraumatic, normocephalic, normal inspection <Gamaliel Abreu - Last Filed: 11/27/23 15:05> <Dannie Roberto - Last Filed: 11/27/23 22:29> - General Exam Comments Initial Comments: Visual Physical Exam Vital signs reviewed General: Well-appearing, nontoxic, no acute distress. Head: Normocephalic, atraumatic Eyes: PERRLA, EOMI ENT: Airway patent Chest: Nonlabored breathing Skin: No visual rash, normal skin tone Neuro: Alert and oriented 3 Musculoskeletal: No gross abnormalities (Gamaliel Abreu) General: He is in mild distress secondary to headache. HEAD: Normal with no signs of head trauma. EYES: EOMI. ENT: Hearing grossly intact RESPIRATORY: No respiratory distress. C/V: Regular rate and rhythm. ABD: Nondistended abdomen. EXT: Normal range of motion, no obvious deformity SKIN: No rashes or lesions observed on exposed skin. NEURO: Alert and oriented x 4. No focal deficits. Ambulatory. GCS 15. (Dannie Roberto) Course Vital Signs 11/27/23 15:19 Temperature 97.8 F Pulse Rate 61 Respiratory 16 Rate Blood Pressure 137/83 O2 Sat by Pulse 98 Oximetry Medical Decision Making <Gamaliel Abreu - Last Filed: 11/27/23 15:05> <Dannie Roberto - Last Filed: 11/27/23 22:29> - Medical Decision Making I completed the quick note portion of this chart signed Gamaliel Abreu PA-C (Gamaliel Abreu) Was pt. sent in by a medical professional or institution (LUIS Nicholson, HEALTH AND WELLNESS ADVISOR, urgent care, hospital, or fci...) When possible be specific @ -No Did you speak to anyone other than the patient for history (EMS, parent, family, police, friend...)? What history was obtained from this source @ -No Did you review nursing and triage notes (agree or disagree)? Why? @ -I reviewed and agree with nursing and triage notes Were old charts reviewed (outside hosp., previous admission, EMS record, old EKG, old radiological studies, urgent care reports/EKG's, fci records)? Report findings @ -Old charts including previous visits were reviewed. Differential Diagnosis (chest pain, altered mental status, abdominal pain women, abdominal pain men, vaginal bleeding, weakness, fever, dyspnea, syncope, headache, dizziness, GI bleed, back pain, seizure, CVA, palpatations, mental health, musculoskeletal)? @ -Differential Headache: Migraine, tension, cluster, carbon monoxide, central venous thrombosis, pension karma temporal arteritis, acute closure glaucoma, intercranial hemorrhage, mastoiditis, sinusitis, head injury, this is not meant to be an all-inclusive list. EKG interpreted by me (3pts min.). @ -None done X-rays interpreted by me (1pt min.). @ -None done CT interpreted by me (1pt min.). @ -CT brain reveals no obvious acute intracranial process. U/S interpreted by me (1pt. min.). @ -None done What testing was considered but not performed or refused? (CT, X-rays, U/S, labs)? Why? @ -None What meds were considered but not given or refused? Why? @ -None Did you discuss the management of the patient with other professionals (professionals i.e. , PA, HEALTH AND WELLNESS ADVISOR, lab, RT, psych nurse, social sciences department chair, chain mender, teacher, finance officer, community case manager)? Give summary @ -No Was smoking cessation discussed for >3mins.? @ -No Was critical care preformed (if so, how long)? @ -No Were there social determinants of health that impacted care today? How? (Homelessness, low income, unemployed, alcoholism, drug addiction, transportation, low edu. Level, literacy, decrease access to med. care, senior care, rehab)? @ -No Was there de-escalation of care discussed even if they declined (Discuss DNR or withdrawal of care, Hospice)? DNR status @ -No What co-morbidities impacted this encounter? (DM, HTN, Smoking, COPD, CAD, Cancer, CVA, ARF, Chemo, Hep., AIDS, mental health diagnosis, sleep apnea, morbid obesity)? @ -Migraine headaches Was patient admitted / discharged? Hospital course, mention meds given and route, prescriptions, significant lab abnormalities, going to OR and other pertinent info. @ -Based on the patient's presentation and physical exam, presents for migraine headaches. Originally seen as a quick note. I evaluated patient after she was placed in a room. CT imaging at this time unremarkable. I did recommend basic labs as well as a migraine cocktail. Patient was in agreement this plan. Vital signs within acceptable limits. Prior to receiving any medications or labs, patient eloped from the emergency department. Patient left AGAINST MEDICAL ADVICE. Undiagnosed new problem with uncertain prognosis? @ -No Drug Therapy requiring intensive monitoring for toxicity (Heparin, Nitro, Insulin, Cardizem)? @ -No Were any procedures done? @ -No Diagnosis/symptom? @ -Migraine headache, left AGAINST MEDICAL ADVICE Acute, or Chronic, or Acute on Chronic? @ -Acute Uncomplicated (without systemic symptoms) or Complicated (systemic symptoms)? @ -Complicated Side effects of treatment? @ -No Exacerbation, Progression, or Severe Exacerbation? @ -No Poses a threat to life or bodily function? How? (Chest pain, [place], [place], pneumonia, PE, COPD, DKA, ARF, appy, cholecystitis, CVA, Diverticulitis, Homicidal, Suicidal, threat to staff... and all critical care pts) @ -Possibly (Dannie Roberto) Disposition <Gamaliel Abreu - Last Filed: 11/27/23 15:05> Time of Disposition: 18:47 <Dannie Roberto - Last Filed: 11/27/23 22:29> Clinical Impression: Migraine Disposition: LEFT AGAINST MEDICAL ADVICE Referrals: Vera Metcalf [Primary Care Provider] - 1-2 days
[2023-11-27 15:55] VITALS: BP 137/83; PULSE 61; RESP 16; TEMP 97.8
--- NOTE | 2023-11-27 17:16 | CT ---
EXAMINATION TYPE: CT brain wo con CT DLP: 1103.4 mGycm, Automated exposure control for dose reduction was used. DATE OF EXAM: 11/27/2023 4:56 PM COMPARISON: None.. CLINICAL INDICATION:Female, 48 years old with history of Intractable headache, Intractable headache. HX OF MIGRAINES TECHNIQUE: Brain: Axial CT images of the brain were obtained with coronal and sagittal reformats created and rev iewed. Contrast used: None. Oral contrast used: None. FINDINGS: Extra-axial spaces: No abnormal extra-axial fluid collections. Basilar cisterns are patent. Ventricular system: Within normal limits. Cerebral parenchyma: No increased attenuation to suggest acute intraparenchymal hemorrhage. The gra y-white matter interface appears maintained. No significant atrophy. White matter unremarkable by C T. Cerebellum: No acute abnormality. Mass effect: No evidence of mass effect or midline shift. Intracranial vasculature: Unremarkable Soft tissues: No acute or concerning abnormality. Visualized orbits: Orbital contents appear grossly intact. Calvarium/osseous structures: No evidence of calvarial fracture. Paranasal sinuses and mastoid air cells: Mucosal thickening with possibly mild superimposed fluid in the posterior left maxillary sinus. Small polypoid focus of mucosal thickening in the right maxillary . There is slight nasal septal deviation towards the left. There is opacification of a few mastoid ai r cells bilaterally. No evidence of trabecular destruction. MRI is more sensitive for detecting acute processes such as infarct, and may be considered if clinica lly warranted. IMPRESSION: 1. No acute intracranial CT abnormality. 2. Paranasal sinus disease and partial opacification of a few mastoid air cells.
[2023-11-27] MEDS ORDERED: diphenhydrAMINE 50 MG/ML 1 ML VIAL IVP STA (17:28)
[2023-11-27] MEDS ORDERED: METOCLOPRAMIDE 5 MG/ML 2 ML VIAL IVP STA (17:28)
[2023-11-27] MEDS ORDERED: SODIUM CHLORIDE 0.9% 1,000 ML IV STA (17:28)
[2023-11-27] MEDS ORDERED: KETOROLAC 15 MG/ML 1 ML VIAL IVP STA (17:29)
== END 2023-11-27 18:48 | disposition left against medical advice (07) ==
LOC: EC 14:41
DX: G43.909 Migraine, unspecified, not intractable, without status migrainosus (principal); Z53.29 Procedure and treatment not carried out because of patient's decision for other reasons; Z88.8 Allergy status to other drugs, medicaments and biological substances
CPT/HCPCS: 70450; 99284